=== PATIENT | male | born 1980 | race Caucasian/White ===

== ENCOUNTER → 2017-01-24 | Outpatient (REF) | payer BC | LOC: M LAB REF 13:12 | PROVIDERS: ATTEND Physician Assistant | DX: J02.9 Acute pharyngitis, unspecified (principal) ==

== ENCOUNTER 2017-11-02 13:59 | Emergency (ER) | payer BC ==
[2017-11-02] MEDS: ONDANSETRON 4 MG ORAL DISINTEGRATING TAB (S0181) PO (15:15)
[2017-11-02] MEDS: ALPRAZolam 0.25 MG TAB PO (15:19)
[2017-11-02] MEDS: NS 1,000 ML IV (15:54)
[2017-11-02] MEDS: ONDANSETRON 4MG/2ML VIAL (J2405) IV (15:54)
[2017-11-02] MEDS: LORazepam 2 MG/ML VIAL (J2060) IV (15:55)
[2017-11-02 16:08] LABS: BASO % 0.5 % (0.0-1.0); EOS # 0.1 10^3/uL (0.0-0.50); EOS % 1.6 % (0.0-3.0); HEMATOCRIT 42.4 % (42.0-52.0); HEMOGLOBIN 15.3 g/dl (14.0-18.0); IMMATURE GRANULOCYTE % 0.3 % (0-0); LYMPH # 0.4 10^3/uL (1.5-4.5); LYMPH % 9.5 % (24.0-44.0); MEAN CORPUSCULAR HEMOGLOBIN 30.6 pg (27.0-33.0); MEAN CORPUSCULAR HGB CONC 36.1 g/dl (32.0-36.5); MEAN CORPUSCULAR VOLUME 84.8 fl (80.0-96.0); MONO # 0.7 10^3/uL (0.0-0.8); MONO % 17.9 % (0.0-5.0); NEUTROPHILS # 2.7 10^3/uL (1.8-7.7); NEUTROPHILS % 70.2 % (36.0-66.0); PLATELET COUNT, AUTOMATED 224 10^3/uL (150-450); RED CELL DISTRIBUTION WIDTH 11.7 % (11.5-14.5); WHITE BLOOD COUNT 3.8 10^3/uL (4.0-10.0)
[2017-11-02 16:30] LABS: ALBUMIN 4.7 GM/DL (3.2-5.2); ALBUMIN/GLOBULIN RATIO 1.24 (1.00-1.93); ALKALINE PHOSPHATASE 76 U/L (45-117); ALT/SGPT 17 U/L (12-78); ANION GAP 9 MEQ/L (8-16); AST/SGOT 21 U/L (7-37); BILIRUBIN,TOTAL 0.9 MG/DL (0.2-1.0); BLOOD UREA NITROGEN 10 MG/DL (7-18); CALCIUM LEVEL 9.4 MG/DL (8.5-10.1); CARBON DIOXIDE LEVEL 27 MEQ/L (21-32); CHLORIDE LEVEL 104 MEQ/L (98-107); CREATININE FOR GFR 0.91 MG/DL (0.70-1.30); GLOMERULAR FILTRATION RATE > 60.0 (>60); GLUCOSE, FASTING 85 MG/DL (70-105); POTASSIUM SERUM 4.2 MEQ/L (3.5-5.1); SODIUM LEVEL 140 MEQ/L (136-145); TOTAL PROTEIN 8.5 GM/DL (6.4-8.2)
== END 2017-11-02 17:35 | disposition home or self-care (01) ==
LOC: M ED 13:59
DX: J11.1 Influenza due to unidentified influenza virus with other respiratory manifestations (principal); R11.0 Nausea; F41.9 Anxiety disorder, unspecified
CPT/HCPCS: J2405

== ENCOUNTER 2018-05-19 03:26 | Day surgery (SDC) | payer BC ==
[2018-05-19] MEDS: NS 1,000 ML IV ×2 (04:42→08:50)
[2018-05-19] MEDS: ONDANSETRON 4MG/2ML VIAL (J2405) IV ×3 (04:42→11:10)
[2018-05-19] MEDS: MORPHINE 4 MG/ML 1ML VIAL/SYRINGE (J2270) IV ×6 (04:43→21:11)
[2018-05-19 04:49] LABS: ALBUMIN 4.3 GM/DL (3.2-5.2); ALBUMIN/GLOBULIN RATIO 1.19 (1.00-1.93); ALKALINE PHOSPHATASE 83 U/L (45-117); ALT/SGPT 20 U/L (12-78); ANION GAP 8 MEQ/L (8-16); AST/SGOT 16 U/L (7-37); BILIRUBIN,DIRECT 0.1 MG/DL (0.0-0.2); BILIRUBIN,TOTAL 0.8 MG/DL (0.2-1.0); BLOOD UREA NITROGEN 15 MG/DL (7-18); CALCIUM LEVEL 9.4 MG/DL (8.5-10.1); CARBON DIOXIDE LEVEL 27 MEQ/L (21-32); CHLORIDE LEVEL 107 MEQ/L (98-107); CREATININE FOR GFR 0.91 MG/DL (0.70-1.30); GLOMERULAR FILTRATION RATE > 60.0 (>60); GLUCOSE, FASTING 111 MG/DL (70-100); LIPASE 57 U/L (73-393); POTASSIUM SERUM 4.2 MEQ/L (3.5-5.1); SODIUM LEVEL 142 MEQ/L (136-145); TOTAL PROTEIN 7.9 GM/DL (6.4-8.2)
[2018-05-19] MEDS: GASTROGRAFIN SOLUTION 30ML PO ×2 (04:49→05:20)
[2018-05-19 04:52] LABS: BASO # 0.1 10^3/uL (0.0-0.2); BASO % 0.3 % (0.0-1.0); EOS # 0.1 10^3/uL (0.0-0.50); EOS % 0.5 % (0.0-3.0); HEMATOCRIT 39.3 % (42.0-52.0); HEMOGLOBIN 14.3 g/dl (13.5-17.5); IMMATURE GRANULOCYTE % 0.5 % (0-3.0); LYMPH # 0.9 10^3/uL (1.5-4.5); MEAN CORPUSCULAR HEMOGLOBIN 31.1 pg (27.0-33.0); MEAN CORPUSCULAR HGB CONC 36.4 g/dl (32.0-36.5); MEAN CORPUSCULAR VOLUME 85.4 fl (80.0-96.0); MONO # 1.3 10^3/uL (0.0-0.8); MONO % 8.5 % (0.0-5.0); NEUTROPHILS # 12.3 10^3/uL (1.8-7.7); NEUTROPHILS % 84.2 % (36.0-66.0); PLATELET COUNT, AUTOMATED 232 10^3/uL (150-450); RED CELL DISTRIBUTION WIDTH 11.7 % (11.5-14.5); WHITE BLOOD COUNT 14.6 10^3/uL (4.0-10.0)
[2018-05-19 05:30] LABS: KETONE, URINE AUTO RFX NEGATIVE (NEGATIVE); LEUKOCYTE ESTERASE UR AUTO RFX NEGATIVE (NEGATIVE); NITRITE, URINE AUTO RFX NEGATIVE (NEGATIVE); RBC, URINE AUTO RFX 0 /HPF (0-3); SPECIFIC GRAVITY UR AUTO RFX 1.003 (1.002-1.035); SQUAM EPITHELIAL CELL UR AURFX 0 /HPF (0-6); WBC, URINE AUTO RFX 0 /HPF (0-3)
[2018-05-19] MEDS ORDERED: ISOVUE-370 76% 100ML VIAL (Q9967) As Ordered (06:07)
[2018-05-19] MEDS: PIPERACILLIN/TAZOBACTAM SOD 4.5 GM in D5W MINI-BAG PLUS 50 ML IV (08:42)
[2018-05-19] MEDS: HYDROMORPHONE HCL 0.5 MG/ 0.5 ML SYRINGE (J1170 PER 1) IV (08:50)
[2018-05-19] MEDS ORDERED: ACETAMINOPHEN TAB 650MG DOSE (2X325MG) PO (09:30)
[2018-05-19] MEDS ORDERED: MORPHINE 4 MG/ML 1ML VIAL/SYRINGE (J2270) As Ordered (10:33)
[2018-05-19] MEDS: ALPRAZolam 0.5 MG TAB PO (11:10)
[2018-05-19] MEDS: LR 1,000 ML IV ×2 (11:11→16:47)
[2018-05-19] MEDS: KETOROLAC 30 MG/ML VIAL (J1885) IV (11:38)
[2018-05-19] MEDS ORDERED: PROPOFOL 200 MG/20 ML VIAL As Ordered (14:48)
[2018-05-19] MEDS ORDERED: MIDAZOLAM INJ 2 MG/2 ML VIAL (J2250) As Ordered (14:48)
[2018-05-19] MEDS ORDERED: LIDOCAINE 2% INJ 100 MG/5 ML SDV (FOR ANES.) As Ordered (14:48)
[2018-05-19] MEDS ORDERED: fentaNYL 250 MCG/5 ML INJECTION (J3010) As Ordered (14:48)
[2018-05-19] MEDS ORDERED: ROCURONIUM BROMIDE 50 MG/5 ML VIAL As Ordered (14:49)
[2018-05-19] MEDS ORDERED: dexameTHASONE 4 MG/ML 1ML VIAL (J1100) As Ordered ×2 (14:49)
[2018-05-19] MEDS ORDERED: ONDANSETRON 4MG/2ML VIAL (J2405) As Ordered (14:49)
[2018-05-19] MEDS ORDERED: NEOSTIGMINE 10 MG/10 ML VIAL (J2710) As Ordered (14:52)
[2018-05-19] MEDS ORDERED: GLYCOPYRROLATE INJ 0.2 MG/ML 2 ML VIAL As Ordered (14:53)
[2018-05-19] MEDS: LIDOCAINE 1% SDV INJ 30 ML VIAL As Ordered (14:58)
[2018-05-19] MEDS: BUPIVACAINE HCL 0.25% 30 ML VIAL As Ordered (14:58)
[2018-05-19] MEDS ORDERED: fentaNYL 100 MCG/2 ML INJECTION (J3010) IV (15:30)
[2018-05-19] MEDS ORDERED: ONDANSETRON 4MG/2ML VIAL (J2405) IV (15:30)
[2018-05-19] MEDS ORDERED: PERCOCET 5MG/325MG TAB PO (15:30)
[2018-05-19] MEDS: PIPERACILLIN/TAZOBACTAM SOD 3.375 GM in D5W MINI-BAG PLUS 50 ML IV (17:45)
[2018-05-19] MEDS: SERTRALINE HCL 50 MG TAB PO ×2 (17:49→17:50)
[2018-05-20] MEDS: NORCO, ANEXSIA 5/325MG TABLET (HYDROcodone/ACETAMINOPHEN) PO ×3 (00:14→09:05)
[2018-05-20] MEDS: PIPERACILLIN/TAZOBACTAM SOD 3.375 GM in D5W MINI-BAG PLUS 50 ML IV ×2 (00:15→09:06)
[2018-05-20 08:34] LABS: BASO % 0.1 % (0.0-1.0); EOS % 0.1 % (0.0-3.0); HEMOGLOBIN 12.6 g/dl (13.5-17.5); IMMATURE GRANULOCYTE % 0.4 % (0-3.0); LYMPH # 0.9 10^3/uL (1.5-4.5); LYMPH % 8.5 % (24.0-44.0); MEAN CORPUSCULAR HEMOGLOBIN 30.6 pg (27.0-33.0); MEAN CORPUSCULAR VOLUME 87.4 fl (80.0-96.0); MONO # 0.9 10^3/uL (0.0-0.8); MONO % 8.4 % (0.0-5.0); NEUTROPHILS # 8.8 10^3/uL (1.8-7.7); NEUTROPHILS % 82.5 % (36.0-66.0); PLATELET COUNT, AUTOMATED 204 10^3/uL (150-450); RED BLOOD COUNT 4.12 10^6/uL (4.30-6.10); WHITE BLOOD COUNT 10.7 10^3/uL (4.0-10.0)
[2018-05-20] MEDS: SERTRALINE HCL 50 MG TAB PO (09:05)
== END 2018-05-20 11:27 | disposition home or self-care (01) ==
LOC: M SDC 05-20 11:27 → M ED 03:26 → M SDC 09:00 → M PED 10:50
DX: K35.89 Other acute appendicitis (principal); F41.9 Anxiety disorder, unspecified; Z79.899 Other long term (current) drug therapy
CPT/HCPCS: 44970

== ENCOUNTER 2018-05-29 02:50 | Emergency (ER) | payer BC ==
[2018-05-29] MEDS: GI COCKTAIL 50ML BTL(HYOSCYAMINE/MAALOX/LIDOCAINE VISCOUS)(1:3:1) PO (04:15)
== END 2018-05-29 04:36 | disposition home or self-care (01) ==
LOC: M ED 02:50
DX: S10.11XA Abrasion of throat, initial encounter (principal); X58.XXXA Exposure to other specified factors, initial encounter; Y92.89 Other specified places as the place of occurrence of the external cause
CPT/HCPCS: 70360

== ENCOUNTER → 2019-11-19 | Outpatient (CLI) | payer OTHER ==
[~2019-11-19] MED LIST: ALPR0.5T3 PO; ALPR0.5T7 PO; HYDR-3715 PO; IBUP-1022 PO; SERT-141 PO; TAMI30CA PO; TESS100C PO; ZOFR4TAB14 PO
--- NOTE | 2019-11-20 02:49 | REP ---
Clinical: Pain with prior trauma. Technique: AP, lateral, bilateral oblique and sunrise views right knee . Findings: The osseous structures and joint spaces are intact and normal. There is no evidence for acute fracture or dislocation. No joint effusion is appreciated. Surrounding soft tissues are unremarkable. No subcutaneous emphysema or radiodense foreign body. Impression: Normal examination. No acute fracture or dislocation. Electronically Signed by Robert Dueñas MD 11/20/2019 02:41 A
== END ==
LOC: M WUC 09:42
PROVIDERS: ATTEND Nurse Practitioner Family
DX: M25.561 Pain in right knee (principal)

== ENCOUNTER → 2019-12-18 | Outpatient (CLI) | payer OTHER ==
--- NOTE | 2019-12-18 17:13 | REP ---
MRI right knee without contrast: History: Contusion of the right knee. Comparison radiographs November 19, 2019. Technique: Axial, coronal, and sagittal imaging planes are utilized. T2 and vyvcoz-mjxrbpo-ziqkqlgs scans were obtained with and without fat saturation in the usual fashion. MRI findings: Cortical and medullary bone signal intensity are normal. There is no evidence of occult fracture. No visible Nelson's cyst. No pathologic joint fluid. Medial and lateral patellar retinacular structures are intact. Patellar and quadriceps tendons have an intact appearance. There is no evidence of anterior or posterior cruciate ligament disruption. Medial collateral ligament and lateral collateral ligamentous complex appear intact. No medial or lateral meniscal tear is appreciated. No articular cartilage defect is seen. Impression: No internal derangement seen. Electronically Signed by Ab Waller MD 12/18/2019 06:03 P
== END ==
LOC: M RAD 11:48
PROVIDERS: ATTEND Physician Assistant Surgical
DX: S80.01XD Contusion of right knee, subsequent encounter (principal); X58.XXXD Exposure to other specified factors, subsequent encounter

== ENCOUNTER → 2020-07-20 | Outpatient (REF) | payer OTHER | LOC: M LAB REF 12:00 | PROVIDERS: ATTEND Physician Assistant | DX: J02.9 Acute pharyngitis, unspecified (principal) ==

== ENCOUNTER → 2020-07-21 | Outpatient (CLI) | payer OTHER ==
--- NOTE | 2020-07-29 09:41 | REP ---
LUMBAR SPINE SERIES: 3-VIEWS HISTORY: Lumbago with sciatica. FINDINGS: Lumbar vertebral body heights are preserved. Alignment is normal. There is minimal disc space narrowing at L4-5. Disc spaces are otherwise preserved. There is no evidence of spondylolysis or spondylolisthesis. Sacrum and sacroiliac (SI) joints are intact. Psoas margins are symmetric. IMPRESSION: Minimal disc space narrowing at L4-5. Otherwise negative lumbar spine radiographs. MTDD
== END ==
LOC: M ADAMS 15:21
PROVIDERS: ATTEND Physician Assistant
DX: M54.41 Lumbago with sciatica, right side (principal)

== ENCOUNTER → 2020-08-21 | Outpatient (REF) | payer OTHER ==
[2020-08-21 12:45] LABS: BASO % 1.2 % (0.0-1.0); EOS # 0.2 10^3/uL (0.0-0.5); EOS % 5.1 % (0.0-3.0); HEMATOCRIT 39.3 % (42.0-52.0); HEMOGLOBIN 13.6 g/dl (13.5-17.5); LYMPH # 1.1 10^3/uL (1.5-5.0); MEAN CORPUSCULAR HEMOGLOBIN 31.1 pg (27.0-33.0); MEAN CORPUSCULAR HGB CONC 34.6 g/dl (32.0-36.5); MEAN CORPUSCULAR VOLUME 89.9 fl (80.0-96.0); MONO # 0.5 10^3/uL (0.0-0.8); MONO % 14.8 % (0.0-5.0); NEUTROPHILS # 1.5 10^3/uL (1.5-8.5); NEUTROPHILS % 44.6 % (36.0-66.0); PLATELET COUNT, AUTOMATED 254 10^3/uL (150-450); RED BLOOD COUNT 4.37 10^6/uL (4.30-6.10); WHITE BLOOD COUNT 3.3 10^3/uL (4.0-10.0)
[2020-08-21 13:09] LABS: ERYTHROCYTE SEDIMENTATION RATE 5 mm/hr (0-15)
[2020-08-21 13:13] LABS: ALBUMIN 3.8 GM/DL (3.2-5.2); ALT/SGPT 22 U/L (12-78); BILIRUBIN,TOTAL 0.9 MG/DL (0.2-1.0); BLOOD UREA NITROGEN 14 MG/DL (7-18); CALCIUM LEVEL 8.9 MG/DL (8.5-10.1); CARBON DIOXIDE LEVEL 30 MEQ/L (21-32); CHLORIDE LEVEL 109 MEQ/L (98-107); CK-MB VALUE MASS 2.5 NG/ML (<3.6); CPK CREATINE PHOSPHOKINASE 267 U/L (39-308); CREATININE FOR GFR 0.85 MG/DL (0.70-1.30); GLOMERULAR FILTRATION RATE > 60.0 (>60); GLUCOSE, FASTING 90 MG/DL (70-100); MB/CK RELATIVE INDEX 0.94 (< OR =4); POTASSIUM SERUM 4.2 MEQ/L (3.5-5.1); SODIUM LEVEL 144 MEQ/L (136-145)
[2020-08-22 16:08] LABS: Lyme Disease IgG/IgM Antibodie <0.91 ISR (0.00-0.90); Lyme Disease IgM Ab Quantitati <0.80 index (0.00-0.79)
== END ==
LOC: M LABDRWAD 12:08
PROVIDERS: ATTEND Physician Assistant
DX: M54.6 Pain in thoracic spine (principal)

== ENCOUNTER → 2020-08-22 | Outpatient (CLI) | payer OTHER ==
--- NOTE | 2020-08-22 17:04 | REP ---
INDICATION: STRAIN OF MUSCLE, FASCIA AND TENDON AT NECK LEVEL, INITIAL E. No history of trauma COMPARISON: None. FINDINGS: Seven views of the cervical spine show no acute fracture, dislocation or subluxation. The intervertebral disc spaces are symmetric and well maintained. The facet joints are well aligned bilaterally. The intervertebral foramina are patent bilaterally and the neural canal is not encroached upon. There is no destructive osseous lesion. Flexion and extension does not appear to be particularly limited radiographically. The anterior spinal soft tissues appear unremarkable. IMPRESSION: Unremarkable cervical spine series. <Electronically signed by Manny Gonzalez > 08/22/20 [id number]
--- NOTE | 2020-08-22 17:06 | REP ---
INDICATION: PAIN IN RIGHT SHOULDER. FINDINGS: The glenohumeral and acromioclavicular joints are within normal limits. There is no acute fracture or destructive osseous lesion. IMPRESSION: Negative exam. <Electronically signed by Manny Gonzalez > 08/22/20 [id number]
== END ==
LOC: M ADAMS 15:29
PROVIDERS: ATTEND Physician Assistant
DX: S16.1XXA Strain of muscle, fascia and tendon at neck level, initial encounter (principal); M25.511 Pain in right shoulder

== ENCOUNTER → 2020-12-25 | Outpatient (CLI) | payer OTHER | LOC: M RAD 08:13 | PROVIDERS: ATTEND Orthopaedic Surgery Sports Medicine | DX: Z53.9 Procedure and treatment not carried out, unspecified reason (principal); M25.511 Pain in right shoulder; M75.41 Impingement syndrome of right shoulder ==

== ENCOUNTER → 2021-01-02 | Outpatient (CLI) | payer OTHER ==
--- NOTE | 2021-01-02 18:41 | REP ---
INDICATION: IMPINGEMENT SYNDROME OF RIGHT SHOULDER. COMPARISON: Comparison radiographs are from January 16, 2014.. TECHNIQUE: Axial, oblique coronal and oblique sagittal imaging planes utilized. T1 and T2 weighted scans are included with without fat saturation. FINDINGS: Glenohumeral and acromioclavicular joints are normally aligned. Cortical and medullary bone signal intensity are normal. There is mild tendinitis tendinosis change in the distal supraspinatus tendon. No focal supraspinatus or other cuff lesion is seen. Biceps tendon is unremarkable. The infraspinatus tendon is intact. There is slight thickening and increased signal intensity in the subscapularis tendon which may reflect tendinosis here. No anterior or posterior labral tear is appreciated. No superior labral tear is seen. No juxta-articular cyst or mass is observed. No articular cartilage lesion is seen. IMPRESSION: Mild tendinitis tendinosis changes in the subscapularis and to a lesser extent supraspinatus tendons. Otherwise negative. <Electronically signed by Rayshawn Waller > 01/02/21 [id number]
== END ==
LOC: M PLARAD 01-01 08:05
PROVIDERS: ATTEND Orthopaedic Surgery Sports Medicine
DX: M75.41 Impingement syndrome of right shoulder (principal)

== ENCOUNTER → 2021-01-22 | Outpatient (CLI) | payer OTHER ==
--- NOTE | 2021-01-22 12:01 | REP ---
INDICATION: RADICULOPATHY CERVICAL REGION. COMPARISON: None. TECHNIQUE: Sagittal T1, T2, stir images of the cervical spine are obtained. Axial T1 and T2 weighted images obtained. FINDINGS: There is straightening of the cervical spine with absence of normal cervical lordosis. On the sagittal T2 weighted images, there is oxvy-sx-qwwaxrpj multilevel degenerative disc disease with loss of disc height and disc desiccation seen diffusely throughout the cervical spine. Vertebral heights are overall preserved. No ridge malalignments. Craniovertebral junction is unremarkable. On the sagittal T2 weighted images, there is cord impingement at the C6-7 disc level. No definite cord compression or abnormal cord signal. On the review of axial images, At C2-3: No significant canal or foraminal narrowing. At C3-4: Disc-osteophyte complex with shkz-vg-qzhjsqya bilateral foraminal narrowing and mild canal stenosis. At C4-5: Disc-osteophyte complex with mild bilateral foraminal narrowing and no significant canal stenosis. At C5-6: Disc-osteophyte complex with mild canal narrowing and mild bilateral foraminal narrowing. At C6-7: Disc-osteophyte complex and the appearance of small disc herniations paracentral with severe canal stenosis with cord impingement and cord compression but no definite abnormal cord signal. There is yzgt-me-ggkdhyfp left and mild right foraminal narrowing. At C7-T1 no significant canal or foraminal narrowing. IMPRESSION: 1. Cyiq-dy-ygjxivcf multilevel degenerative disc disease. Straightening of the cervical spine with absence of normal cervical lordosis. 2. At C6-7: Disc-osteophyte complex and the appearance of small disc herniations paracentral with severe canal stenosis with cord impingement and cord compression but no definite abnormal cord signal. There is rlau-si-oirmylok left and mild right foraminal narrowing. <Electronically signed by Nick Angel > 01/22/21 [id number]
== END ==
LOC: M PLARAD 10:30
PROVIDERS: ATTEND Orthopaedic Surgery Sports Medicine
DX: M54.12 Radiculopathy, cervical region (principal)

== ENCOUNTER → 2021-03-05 | Outpatient (CLI) | payer OTHER ==
--- NOTE | 2021-03-10 01:44 | ECWPNPC ---
PATIENT NAME: EAGLE CABRERA : 1980 GENDER: MALE VISIT DATE: 03/05/2021 DISCHARGE DATE: 03/05/21 1417 VISIT LOCKED DATE TIME: PHYSICIAN: VEE MOSS PHYSICIAN PAGER NO: ACTIVE RESOURCE: VEE MOSS REASON FOR APPOINTMENT 1. DDD CERVICAL HISTORY OF PRESENT ILLNESS DEPRESSION SCREENIN-YEAR-OLD MALE IN FOR INITIAL PAIN CONSULT REGARDING NECK PAIN. PATIENT ADMITS THAT HE HAS BEEN EXPERIENCING NECK AND SHOULDER PAIN SINCE LAST AUGUST STATUS POST A MOVE. HE RATES HIS PAIN CURRENTLY AT A 4-5 OUT OF 10. HE DOES ADMIT TO RESTRICTION OF MOVEMENTS. PATIENT DOES ADMIT THAT HE WAS PRESCRIBED PT HOWEVER HE WAS UNABLE TO COMPLETE HIS 6 WEEKS GIVEN HE EXPERIENCED INCREASED PAIN. PHQ-2 (2015 EDITION) LITTLE INTEREST OR PLEASURE IN DOING THINGS?NOT AT ALL FEELING DOWN, DEPRESSED, OR HOPELESS?NOT AT ALL TOTAL SCORE0 GENERAL: - - -. FALL RISK SCREENING: SCREENING NO FALLS REPORTED IN THE LAST YEAR. PAIN SCREENING: PATIENT HAS A COMPLAINT OF ACUTE OR CHRONIC PAIN :YES LOCATION OF PAIN:NECK, BOTH SHOULDERS INTENSITY OF PAIN (SCALE OF 1 TO 10):4 AVERAGE 5 WHAT DOES YOUR PAIN FEEL LIKE:ACHING, CONTINOUS, SHARP DURATION:CONTINOUS, AWAKENS FROM SLEEP PAIN IS INCREASED BY:ACTIVITIES, PROLONGED STANDING PAIN IS DECREASED BY:USE OF PAIN MEDICATIONS, SITTING NURSING NOTE: - - -. PAIN CENTER INTAKE QUESTIONS: DO YOU HAVE A HISTORY OF MRSA? :NO DO YOU TAKE A BLOOD THINNERS? :NO DO YOU HAVE ANY BLEEDING DISORDERS? :NO ANY NEW NUMBNESS OR WEAKNESS IN YOUR LEGS OR ARMS? :YES NUMBNESS, TINGLING, AND WEAKNESS IN BILATERAL HANDS AND ARMS ANY PACEMAKER,DEFIBRILLATOR, OR DORSAL COLUMN STIMULATOR? :NO DO YOU HAVE ANY RASHES OR OPEN SORES? :NO ARE YOU ALLERGIC TO IV DYE? :NO ARE YOU DIABETIC? :NO ANY NEW PROBLEMS WITH YOUR MEDICATIONS? :NO HAVE YOU RECEIVED A VACCINE IN THE PAST 30 DAYS? :NO DO YOU PLAN TO RECEIVE A VACCINE IN THE NEXT 21 DAYS? :NO DO YOU NEED ANY PRESCRIPTION? :NO DO YOU TAKE ANY IMMUNOSUPPRESSIVE MEDICATIONS? :NO IS THERE A CHANCE YOU COULD BE ? :NO ARE YOU BREAST FEEDING? :NO CURRENT MEDICATIONS TAKING IBUPROFEN 200 MG TABLET 3 TABLET WITH FOOD OR MILK NEEDED ORALLY PRN TAKING ACETAMINOPHEN EXTRA STRENGTH 500 MG TABLET 2 TABLET NEEDED ORALLY EVERY 6 HRS NEEDED FOR PAIN MEDICATION LIST REVIEWED AND RECONCILED WITH THE PATIENT PAST MEDICAL HISTORY MIGRAINES DDD IMPINGEMENT OF SPINAL CORD C3 OSTEOARTHRITIS BONE SPURS IN SPINE TENDONOSIS SPINAL STENOSIS ALLERGIES N.K.D.A. SURGICAL HISTORY ENDOSCOPY 2010 EYE SURGERY AT AGE 5 OR 6 VASECTOMY 10/01/14 APPENDECTOMY 05/19/2018 FAMILY HISTORY FATHER: ALIVE MOTHER: ALIVE, DIAGNOSED WITH DIABETES SIBLINGS: UNKNOWN, SISTER DIABETES DAUGHTER(S): ALIVE 3 BROTHER(S) , 1 SISTER(S) - HEALTHY. 2 SON(S) , 1 DAUGHTER(S) - HEALTHY. SISTER IS . MOTHER HAS DIABETES AND FATHER HAS KIDNEY DISEASE. SOCIAL HISTORY GENERAL: TOBACCO USE ARE YOU A:NEVER SMOKER LATEX QUESTIONNAIRE LATEX ALLERGY : HAVE YOU EVER DEVELOPED ANY TYPE OF REACTION AFTER HANDLING LATEX PRODUCTS SUCH RUBBER GLOVES, CONDOMS, DIAPHRAGMS, BALLOONS, SOCKS, OR UNDERWEAR?NO LATEX ALLERGY : HAVE YOU EVER DEVELOPED ANY TYPE OF REACTION DURING OR AFTER DENTAL APPOINTMENT, VAGINAL/RECTAL EXAMINATION, SURGICAL PROCEDURE, OR ANY OTHER EXPOSURE?NO LATEX RISK : HAVE YOU EVER HAD ANY DIFFICULTY BREATHING OR HIVES AFTER EATING OR HANDLING ANY FRUITS, OR VEGETABLES; SUCH KIWI, BANANAS, STONE FRUITS, OR CHESTNUTSNO LATEX RISK : DO YOU HAVE A PREVIOUS PERSONAL HISTORY OF MORE THAN NINE SURGERIES, SPINA BIFIDA, OR REPEATED CATHERIZATIONS? NO LATEX RISK : ARE YOU FREQUENTLY EXPOSED TO LATEX PRODUCTS IN YOUR OCCUPATION?NO DATE ASKED : 03/05/2021 ALCOHOL USE: OCCASIONAL BEER.. ALCOHOL SCREENING DID YOU HAVE A DRINK CONTAINING ALCOHOL IN THE PAST YEAR?YES HOW OFTEN DID YOU HAVE SIX OR MORE DRINKS ON ONE OCCASION IN THE PAST YEAR?NEVER (0 POINTS) HOW MANY DRINKS DID YOU HAVE ON A TYPICAL DAY WHEN YOU WERE DRINKING IN THE PAST YEAR?1 OR 2 (0 POINTS) HOW OFTEN DID YOU HAVE A DRINK CONTAINING ALCOHOL IN THE PAST YEAR?TWO TO FOUR TIMES A MONTH (2 POINTS) POINTS2 INTERPRETATIONNEGATIVE RECREATIONAL DRUG USE DENIES. CAFFEINE NONE. SEXUAL HX HAD SEX IN THE LAST 12 MONTHS (VAGINAL, ORAL, OR ANAL)?YES WITHWOMEN ONLY PREVENTION STRATEGIES DISCUSSED:OTHER USE PROTECTION?NO HAVE YOU EVER HAD AN STD?NO PENTECOSTAL NO YAZIDISM BELIEFS THAT WOULD IMPACT HEALTH CARE. LANGUAGE POLISH. EDUCATION LEVEL OF EDUCATION:NOT FINISHED COLLEGE LEARNING BARRIERS / SPECIAL NEEDS BARRIERS TO LEARNING?NO HEARING IMPAIRED?NO VISION IMPAIRED?YES :CORRECTIVE LENSES COGNITIVELY IMPAIRED?NO READINESS TO LEARN?YES LEARNING PREFERENCES?NO LEARNING CAPABILITIES PRESENT?YES EMOTIONAL BARRIERS?NO SPECIAL DEVICES?NO PREFITTER NEEDED?YES DOMESTIC VIOLENCE NONE. OCCUPATION: SALES. DIET: REGULAR. EXERCISE: WALKS. MARITAL STATUS: . OTHERS AT HOME: SPOUSE, CHILD. HOSPITALIZATION/MAJOR DIAGNOSTIC PROCEDURE DEHYDRATION 1993 SURGERY RELATED REVIEW OF SYSTEMS CONSTITUTIONAL: ANY RECENT FEVER NO . CHILLS NO . WEIGHT CHANGE OF UNKNOWN REASONS NO . MUSCULOSKELETAL: ANY UNUSUAL JOINT PAIN OR SWELLING NOT MENTIONED NO . SYSTEMIC LUPUS NO . ANY NEUROMUSCULAR DISORDER NOT MENTIONED NO . LYME DISEASE NO . GASTROENTEROLOGY: ANY NEW CHANGE IN BOWEL CONTROL? NO . HISTORY OF LIVER DISORDER NOT MENTIONED NO . HISTORY OF UNUSUAL ABDOMINAL PAIN OR CRAMPING NOT MENTIONED NO . NO CONSTIPATION. GENITOURINARY: ANY NEW CHANGE IN BLADDER CONTROL? NO . ANY RENAL/KIDNEY CONDITON NOT MENTIONED NO . NEUROLOGY: HISTORY OF TBI NOT MENTIONED NO . OTHER NEW NUMBNESS OR PAIN PATTERNS NOT MENTIONED NO . NEW ONSET DIZZINESS OR NEUROLOGICAL CHANGES NOT MENTIONED NO . HISTORY OF SEVERE HEADACHES NOT MENTIONED NO . HISTORY OF STROKE OR NEUROLOGICAL DISORDER NOT MENTIONED NO . CARDIOLOGY: HEART SURGERY NO . CONGESTIVE HEART FAILURE/FLUID OVERLOAD NOT MENTIONED NO . HISTORY OF CHEST PAIN,IRREGULAR HEART BEAT NOT MENTIONED NO . RESPIRATORY: SHORTNESS OF BREATH ON EXERTION, WHEEZES, UNUSUAL COUGH NOT MENTIONED NO . ENDOCRINOLOGY: ADRENAL GLAND OR THYROID DISORDERS NOT MENTIONED NO . UNUSUAL URINATION, DIZZINESS OR LETHARGY NOT MENTIONED NO . VITAL SIGNS WT 166.4 LBS, HT 5'11", BMI 23.21 INDEX, BP 117/80 MM HG, HR 101 /MIN, RR 18 /MIN, TEMP 99.2 F, OXYGEN SAT % 97%, SAFE IN ENV? (Y/N) YES, NA INITIALS , REVIEWED BY: EVELYN NICHOLSON MA. EXAMINATION GENERAL EXAMINATION: GENERALNO ACUTE DISTRESS, WELL NOURISHED AND HYDRATED. PSYCHAPPROPRIATE MOOD AND AFFECT . NECK:POINT TENDER BILATERAL NECK AND SHOULDERS, SURROUNDING SKIN SHOWS NO ERYTHEMA, ECCHYMOSIS, INCREASED WARMTH, AND/OR SKIN ERUPTIONS NOTED. BANDS OF RESTRICTIVE TISSUE NOTED OVER TRIGGER POINTS. POSITIVE SPURLING SIGN AND PATIENT DOES ENDORSE INCREASED NECK PAIN WHEN ASKED TO LIFT ARMS AGAINST RESISTANCE.. LUNGS:CLEAR TO AUSCULTATION BILATERALLY, NO WHEEZES, RHONCHI, RALES. HEART:NO MURMURS, REGULAR RATE AND RHYTHM. ASSESSMENTS MYALGIA, OTHER SITE - M79.18 TREATMENT MYALGIA, OTHER SITE START GABAPENTIN CAPSULE, 100 MG, 1 CAPSULE, ORALLY, THREE TIMES DAILY X 5 DAYS, 5 DAYS, 15 START GABAPENTIN CAPSULE, 300 MG, 1 CAPSULE, ORALLY, THREE TIMES DAILY START DAY 6, 30 DAY(S), 90, REFILLS 1 NOTES: 40-YEAR-OLD MALE IN FOR INITIAL PAIN CONSULT REGARDING NECK AND SHOULDER PAIN. GIVEN PRESENTING SYMPTOMS AND RESULTS OF PHYSICAL EXAMINATION RECOMMENDED BILATERAL NECK AND BILATERAL SHOULDER TRIGGER POINT INJECTIONS WITH POSTPROCEDURAL FOLLOW-UP. FURTHER RECOMMENDED STARTING GABAPENTIN. PATIENT HAS EXPRESSED UNDERSTANDING OF AND WAS IN AGREEMENT WITH TREATMENT PLAN. GIVEN TIME TO ASK QUESTIONS AND EXPRESS CONCERNS. OTHERS NOTES: GABAPENTIN MATERIAL WAS PRINTED. PREPROCEDURE AND PROCEDURE INFORMATION PRINTED AND PROVIDED TO PATIENT. PATIENT VERBALIZED AN UNDERSTANDING. RUSH NICHOLSON MA. PROCEDURE CODES [id number] ESTABILISHED PATIENT [facility] CHARGE DISPOSITION & COMMUNICATION FOLLOW UP POSTPROCEDURE (REASON: BILATERAL NECK AND BILATERAL SHOULDER TRIGGER POINT INJECTIONS) ELECTRONICALLY SIGNED BY CHRISTY MOON ON 03/09/2021 AT 10:36 AM EDT DISCLAIMER : THIS IS A VISIT SUMMARY EXTRACTED FROM THE [employer] CHART. IT IS NOT A COPY OF THE [employer] PROGRESS NOTE. NABILA
== END ==
LOC: M PAIN 13:00
PROVIDERS: ATTEND Family Medicine
DX: M79.18 Myalgia, other site (principal); G43.909 Migraine, unspecified, not intractable, without status migrainosus; Z79.899 Other long term (current) drug therapy

== ENCOUNTER → 2021-03-14 | Outpatient (CLI) | payer OTHER | LOC: M LABSMTC 09:33 | PROVIDERS: ATTEND Anesthesiology | DX: Z20.828 Contact with and (suspected) exposure to other viral communicable diseases (principal); Z11.59 Encounter for screening for other viral diseases ==

== ENCOUNTER → 2021-03-19 | Outpatient (CLI) | payer OTHER ==
[~2021-03-19] MED LIST changes: +BUPIVACAINE HCL 0.25% 10ML VIAL As Ordered ONE; +BUPIVACAINE HCL 0.25% 30ML VIAL As Ordered ONE; +NORCO, ANEXSIA 5/325MG TABLET (HYDROcodone/ACETAMINOPHEN) As Ordered ONE; +TRIAMCINOLONE ACETONIDE SUSP 40 MG/ML VIAL (J3301) As Ordered ONE; +diazePAM 5MG TABLET As Ordered ONE
--- NOTE | 2021-03-20 00:04 | ECWPNPC ---
PATIENT NAME: EAGLE CABRERA : 1980 GENDER: MALE VISIT DATE: 03/19/2021 DISCHARGE DATE: 03/19/21 1123 VISIT LOCKED DATE TIME: PHYSICIAN: ALEXANDER JOSHI MD PHYSICIAN PAGER NO: ACTIVE RESOURCE: ALEXANDER JOSHI MD REASON FOR APPOINTMENT 1. TRIGGER POINT INJECTIONS BILATERAL NECK AND BILATERAL SHOULDER HISTORY OF PRESENT ILLNESS GENERAL: -. FALL RISK SCREENING: SCREENING : NO FALLS REPORTED IN THE LAST YEAR. PAIN SCREENING: PATIENT HAS A COMPLAINT OF ACUTE OR CHRONIC PAIN :YES LOCATION OF PAIN:NECK, LEFT SHOULDER, RIGHT SHOULDER INTENSITY OF PAIN (SCALE OF 1 TO 10):3 3 WITH PAIN MEDS. 7-8 WITHOUT MEDS. WHAT DOES YOUR PAIN FEEL LIKE:ACHING, CONTINOUS, SHARP, STABBING, TENDER, THROBBING, SORE, SHOOTING DURATION:CONTINOUS PAIN IS INCREASED BY:ACTIVITIES PAIN IS DECREASED BY:USE OF PAIN MEDICATIONS NURSING NOTE: -. PAIN CENTER INTAKE QUESTIONS: DO YOU HAVE A HISTORY OF MRSA? :NO DO YOU TAKE A BLOOD THINNERS? :NO DO YOU HAVE ANY BLEEDING DISORDERS? :NO ANY NEW NUMBNESS OR WEAKNESS IN YOUR LEGS OR ARMS? :NO ANY PACEMAKER,DEFIBRILLATOR, OR DORSAL COLUMN STIMULATOR? :NO DO YOU HAVE ANY RASHES OR OPEN SORES? :NO ARE YOU ALLERGIC TO IV DYE? :NO ARE YOU DIABETIC? :NO ANY NEW PROBLEMS WITH YOUR MEDICATIONS? :NO HAVE YOU RECEIVED A VACCINE IN THE PAST 30 DAYS? :NO DO YOU PLAN TO RECEIVE A VACCINE IN THE NEXT 21 DAYS? :NO DO YOU TAKE ANY IMMUNOSUPPRESSIVE MEDICATIONS? :NO ANY HISTORY OF SEIZURES? :NO ANY HISTORY OF CARDIAC ISSUES OR EVENTS? :NO DO YOU HAVE ANY KIDNEY OR LIVER DISEASE? :NO DO YOU HAVE SLEEP APNEA? :NO ANY RECENT HEAD INJURY? :NO DO YOU HAVE ANY NEW INFECTIONS? :NO IS THERE A CHANCE YOU COULD BE ? :NO ARE YOU BREAST FEEDING? :NO WHEN DID YOU LAST EAT? : 03/18/21 1900 WHEN DID YOU LAST DRINK? : 03/18/21 0500 WHAT DID YOU LAST DRINK? : NO NAME OF PERSON DRIVING YOU HOME? : PABLO (GF) DO YOU HAVE ANY OTHER QUESTIONS OR CONCERNS? : NO CURRENT MEDICATIONS TAKING IBUPROFEN 200 MG TABLET 3 TABLET WITH FOOD OR MILK NEEDED ORALLY PRN, NOTES: 6/2 TAKING ACETAMINOPHEN EXTRA STRENGTH 500 MG TABLET 2 TABLET NEEDED ORALLY EVERY 6 HRS NEEDED FOR PAIN, NOTES: 6/2 TAKING GABAPENTIN 300 MG CAPSULE 1 CAPSULE ORALLY THREE TIMES DAILY START DAY 6, NOTES: 6/2 TAKING METHOCARBAMOL 750 MG TABLET 1 TABLET ORALLY EVERY 4 HRS PRN, NOTES: 62 NOT-TAKING GABAPENTIN 100 MG CAPSULE 1 CAPSULE ORALLY THREE TIMES DAILY X 5 DAYS MEDICATION LIST REVIEWED AND RECONCILED WITH THE PATIENT PAST MEDICAL HISTORY MIGRAINES DDD IMPINGEMENT OF SPINAL CORD C3 OSTEOARTHRITIS BONE SPURS IN SPINE TENDONOSIS SPINAL STENOSIS ALLERGIES N.K.D.A. SURGICAL HISTORY ENDOSCOPY 2010 EYE SURGERY AT AGE 5 OR 6 VASECTOMY 10/01/14 APPENDECTOMY 05/19/2018 FAMILY HISTORY FATHER: ALIVE MOTHER: ALIVE, DIAGNOSED WITH DIABETES SIBLINGS: UNKNOWN, SISTER DIABETES DAUGHTER(S): ALIVE 3 BROTHER(S) , 1 SISTER(S) - HEALTHY. 2 SON(S) , 1 DAUGHTER(S) - HEALTHY. SISTER IS . MOTHER HAS DIABETES AND FATHER HAS KIDNEY DISEASE. SOCIAL HISTORY GENERAL: TOBACCO USE ARE YOU A:NEVER SMOKER LATEX QUESTIONNAIRE LATEX ALLERGY : HAVE YOU EVER DEVELOPED ANY TYPE OF REACTION AFTER HANDLING LATEX PRODUCTS SUCH RUBBER GLOVES, CONDOMS, DIAPHRAGMS, BALLOONS, SOCKS, OR UNDERWEAR?NO LATEX ALLERGY : HAVE YOU EVER DEVELOPED ANY TYPE OF REACTION DURING OR AFTER DENTAL APPOINTMENT, VAGINAL/RECTAL EXAMINATION, SURGICAL PROCEDURE, OR ANY OTHER EXPOSURE?NO LATEX RISK : HAVE YOU EVER HAD ANY DIFFICULTY BREATHING OR HIVES AFTER EATING OR HANDLING ANY FRUITS, OR VEGETABLES; SUCH KIWI, BANANAS, STONE FRUITS, OR CHESTNUTSNO LATEX RISK : DO YOU HAVE A PREVIOUS PERSONAL HISTORY OF MORE THAN NINE SURGERIES, SPINA BIFIDA, OR REPEATED CATHERIZATIONS? NO LATEX RISK : ARE YOU FREQUENTLY EXPOSED TO LATEX PRODUCTS IN YOUR OCCUPATION?NO DATE ASKED : 03/18/2021 ALCOHOL USE: OCCASIONAL BEER.. ALCOHOL SCREENING POINTS: 2, INTERPRETATION: NEGATIVE. RECREATIONAL DRUG USE DENIES. CAFFEINE NONE. SEXUAL HX HAD SEX IN THE LAST 12 MONTHS (VAGINAL, ORAL, OR ANAL)?: YES, WITH: WOMEN ONLY, USE PROTECTION?: NO, PREVENTION STRATEGIES DISCUSSED:: OTHER, HAVE YOU EVER HAD AN STD?: NO. TEMPLE NO JEW BELIEFS THAT WOULD IMPACT HEALTH CARE. LANGUAGE FAROESE. EDUCATION LEVEL OF EDUCATION:NOT FINISHED COLLEGE LEARNING BARRIERS / SPECIAL NEEDS BARRIERS TO LEARNING?NO HEARING IMPAIRED?NO VISION IMPAIRED?YES :CORRECTIVE LENSES COGNITIVELY IMPAIRED?NO READINESS TO LEARN?YES LEARNING PREFERENCES?NO LEARNING CAPABILITIES PRESENT?YES EMOTIONAL BARRIERS?NO SPECIAL DEVICES?NO TELETYPESETTER MONITOR NEEDED?YES DOMESTIC VIOLENCE NONE. OCCUPATION: SALES. DIET: REGULAR. EXERCISE: WALKS. MARITAL STATUS: . OTHERS AT HOME: SPOUSE, CHILD. HOSPITALIZATION/MAJOR DIAGNOSTIC PROCEDURE DEHYDRATION 1993 SURGERY RELATED VITAL SIGNS WT 165.0 LBS, HT 5'11", BMI 23.01 INDEX, BP 109/72 MM HG, HR 70 /MIN, RR 18 /MIN, TEMP 98.0 F, OXYGEN SAT % 98%, SAFE IN ENV? (Y/N) YES, NA INITIALS AW 0848, REVIEWED BY: Heena COOK RN BSN. EXAMINATION GENERAL: A HISTORY AND PHYSICAL EXAM ON THE PATIENT WAS DONE ON 03/05/2021(DATE OF ORIGINAL ASSESSMENT) IN PREPARATION OF SURGERY/PROCEDURE. I HAVE NOW REASSESSED THIS PATIENT'S HEALTH STATUS AND PERFORMED AN UPDATED EXAM TODAY. ALL CHANGES IN THE PATIENT'S HISTORY, PHYSICAL EXAM, PRE-EXISTING CONDITONS, AND INDICATIONS/CONTRAINDICATIONS TO THE PLANNED PROCEDURE AND ANESTHESIA ARE DOCUMENTED AND EVALUATED BELOW. I ATTEST TO THE ADEQUACY AND APPROPRIATENESS OF MY ASSESSMENT, AND CONFIRM THE NECESSITY FOR THE PLANNED PROCEDURE. THE PATIENT IS ALERT, ORIENTED TIMES THREE AND COOPERATIVE. LUNGS ARE CLEAR TO AUSCULTATION. HEART SHOWS REGULAR RHYTHM, NO MURMURS AND NO GALLOPS. ASSESSMENTS MYALGIA - M79.10 (PRIMARY) TREATMENT MYALGIA MEDICATION: VALIUM TAB 5MG ORALLY (DIAZEPAM)NATHAN LINARES 03/19/2021 10:03:33 AM > VERIFIED BRANDON COOK 03/19/2021 11:06:34 AM > ADMINISTERED AT 1048. COMPLETION OF PROCEDURAL VISIT WHEN MEETS CRITERIA MED: PAIN NORCO TABLET 5MG/325MG ORALLY HYDROCODONE/ACETAMINOPHENNATHAN LINARES 03/19/2021 10:03:46 AM > VERIFIED BRANDON COOK 03/19/2021 11:06:50 AM > ADMINISTERED AT 1048. REFERRAL TO:[facility] REASON:NUMBNESS AND WEAKNESS DOWN UPPER EXTREMITIES OTHERS NOTES: PAT COMPLETED 03/18/21 M DALE DIEGO. PROCEDURES PAIN NURSING RECORD PROCEDURE IN ROOM 0836 UPON ARRIVAL TO CLINIC, PHYSICIAN IN ROOM 1100, START 1107, FINISH 1111, PHYSICIAN OUT OF ROOM 1112, OUT OF ROOM 1125, ECG N/A, PATIENT SHIELDED N/A, SAFETY STRAP N/A, PREP ALCOHOL DR. JOSHI, DRESSING TEGADERM Heena COOK RN LOC: BRANDON COOK 03/19/2021 9:16:21 AM > 1. ALERT, ORIENTED LOC REMAINED AT BASELINE THROUGHOUT THE PROCEDURE RESP: BRANDON COOK 03/19/2021 9:16:21 AM > 1. REGULAR, NO DYSPNEA COLOR: BRANDON COOK 03/19/2021 9:16:21 AM > 1. PINK SKIN: BRANDON COOK 03/19/2021 9:16:21 AM > 1. WARM, DRY POSITION: BRANDON COOK 03/19/2021 9:16:21 AM > 5. SITTING VITALS: BRANDON COOK 03/19/2021 11:20:52 AM > POST PROCEDURE 119/83, 96, 95% RA, 18. COMPLETION OF PROCEDURE APPOINTMENT: POST PAIN 0/10 EVEN WITH MOVEMENT, DRESSING SITE DRY AND INTACT, IV N/A, GAIT STEADY, TEACHING COMPLETED, PATIENT ACKNOWLEDGES UNDERSTANDING YES PATIENT PROVIDED POST PROCEDURE PAIN DIARY, COVID SYMPTOM MONITORING INSTRUCTIONS AND POST PROCEDURE INSTRUCTIONS, HANDOUTS REVIEWED WITH PATIENT; PATIENT VERBALIZES UNDERSTANDING, NO QUESTIONS OR CONCERNS AT THIS TIME., PROCEDURE APPOINTMENT COMPLETED AT 1125 BY: Heena COOK RN. PN TRIGGER POINT INJECTION WITH STEROIDS PRE PROCEDURE DIAGNOSIS 1. MYALGIA 2. PAIN AT BILATERAL SHOULDER AREA AND BILATERAL THORACIC AREA POST PROCEDURE DIAGNOSIS 1. MYALGIA 2. PAIN AT BILATERAL SHOULDER AREA AND BILATERAL THORACIC AREA PROCEDURE TRIGGER POINT INJECTION AT BILATERAL SHOULDER AREA AND BILATERAL THORACIC AREA SURGEON DR. ALEXANDER JOSHI FILM SORTER NONE ANESTHESIA LOCAL PRE PROCEDURE NOTE THE PATIENT HAS A HISTORY OF CHRONIC PAIN AT THE RIGHT AND LEFT SHOULDER AREA AND RIGHT AND LEFT THORACIC AREA. I EVALUATED THE PATIENT AND REVIEWED THE CHART. THERE IS EVIDENCE OF BANDS OF TISSUE WITH RESTRICTION OF MOVEMENT AND PRESENCE OF TRIGGER POINT AT THE RIGHT AND LEFT SHOULDER AREA AND RIGHT AND LEFT THORACIC AREA. I WENT OVER THE RISKS, ALTERNATIVES, AND BENEFITS ASSOCIATED WITH THIS PROCEDURE. THE PATIENT WOULD LIKE TO PROCEED AND GIVE CONSENT TO PERFORMED THE PROCEDURE. THE PATIENT DENIES UNEXPLAINABLE WEIGHT LOSS, FEVER, CHILLS, OR NEW CHANGES IN URINARY OR BOWEL CONTROL. THE PATIENT IS COVID-19 NEGATIVE DESCRIPTION OF PROCEDURE THE PATIENT WAS BROUGHT TO THE PROCEDURE ROOM AND PLACED IN THE SITTING POSITION. THE AREA WAS CLEANED WITH ALCOHOL. THE PROCEDURE WAS DONE USING ASEPTIC STERILE TECHNIQUE. A TIMEOUT WAS PERFORMED WHERE THE CONSENTED SITE WAS VERIFIED WITH EVERYONE IN THE ROOM. USING A 25-GAUGE NEEDLE, TRIGGER POINTS WERE INJECTED AT THE RIGHT AND LEFT SHOULDER AREA AND RIGHT AND LEFT THORACIC AREA WITH A TOTAL OF 40 ML OF BUPIVACAINE 0.25% AND KENALOG 40 MG. THE MEDICATIONS WERE VERIFIED WITH THE NURSE. THERE WAS NO EVIDENCE OF BLOOD OR PARESTHESIA DURING THE PROCEDURE. THE PATIENT WAS SENT TO THE RECOVERY ROOM. THE PATIENT WAS MOVING THE EXTREMITIES AND DOING WELL. THERE WERE NO COMPLICATIONS DURING THE PROCEDURE. ESTIMATED BLOOD LOSS WAS LESS THAN 5 ML POST PROCEDURE NOTE MR. CABRERA DID A CERVICAL MRI ON 01/22/2021 THAT IS SHOWING SOME SEVERE STENOSIS AT C6-C7. HE IS ALSO HAVING NUMBNESS AND WEAKNESS DOWN BOTH UPPER EXTREMITIES. SO I SUGGEST REFERRING HIM FOR A SPINE SURGICAL CONSULT. HE IS ALSO GOING TO HAVE A FOLLOW UP WITH DR. MELLO. THE PATIENT MAY BE A CANDIDATE FOR A CERVICAL EPIDURAL DEPENDING ON THE RESULTS OF TODAY'S PROCEDURE. THE PROCEDURE DONE WAS DISCUSSED WITH THE PATIENT. THE PATIENT WILL BE SEEN IN A FOLLOW UP IN THE NEXT FEW WEEKS. I AM LOOKING FOR LONG LASTING PAIN RELIEF FOR THE PATIENT WITH THIS INTERVENTION. INSTRUCTIONS WERE GIVEN, QUESTIONS WERE ANSWERED, AND THE PATIENT EXPRESSED UNDERSTANDING AND AGREES WITH THE PLAN. I, DAPHNIE VYAS, DOCUMENTED THE ABOVE INFORMATION ACTING A SCRIBE FOR DR. JOSHI. I HAVE REVIEWED THE ABOVE DOCUMENT, WRITTEN BY DAPHNIE VYAS, [employer] BPM ARCHITECT, AND I VERIFY THAT IT IS ACCURATE PROCEDURE CODES 63919 INJECT TRIGGER POINTS 3/> DISPOSITION & COMMUNICATION FOLLOW UP FOLLOW UP WITH BOAT CLEANING SUPERVISOR (REASON: POST TRIGGER POINT INEJCTION BILATERAL SHOULDER AND BILATERAL THORACIC) ELECTRONICALLY SIGNED BY ALEXANDER JOSHI MD, MD ON 03/19/2021 AT 02:46 PM EDT DISCLAIMER : THIS IS A VISIT SUMMARY EXTRACTED FROM THE [employer] CHART. IT IS NOT A COPY OF THE [employer] PROGRESS NOTE. NABILA
== END ==
LOC: M PAIN 08:30
PROVIDERS: ATTEND Anesthesiology
DX: M79.10 Myalgia, unspecified site (principal); G43.909 Migraine, unspecified, not intractable, without status migrainosus; Z79.899 Other long term (current) drug therapy
CPT/HCPCS: 20553; J3301

== ENCOUNTER → 2021-04-09 | Outpatient (CLI) | payer OTHER ==
[~2021-04-09] MED LIST changes: -BUPIVACAINE HCL 0.25% 10ML VIAL As Ordered ONE; -BUPIVACAINE HCL 0.25% 30ML VIAL As Ordered ONE; -NORCO, ANEXSIA 5/325MG TABLET (HYDROcodone/ACETAMINOPHEN) As Ordered ONE; -TRIAMCINOLONE ACETONIDE SUSP 40 MG/ML VIAL (J3301) As Ordered ONE; -diazePAM 5MG TABLET As Ordered ONE
--- NOTE | 2021-04-11 04:01 | ECWPNPC ---
PATIENT NAME: EAGLE CABRERA : 1980 GENDER: MALE VISIT DATE: 04/09/2021 DISCHARGE DATE: 04/09/21 1212 VISIT LOCKED DATE TIME: PHYSICIAN: VEE MOSS PHYSICIAN PAGER NO: ACTIVE RESOURCE: VEE MOSS REASON FOR APPOINTMENT 1. POST BILATERAL NECK AND BILATERAL SHOULDER TRIGGER POINT INJECTIONS HISTORY OF PRESENT ILLNESS GENERAL: HPI 32-YEAR-OLD MALE IN FOR POST TRIGGER POINT JUNCTION FOLLOW-UP. PATIENT FEELS PROCEDURE WAS UNSUCCESSFUL. HE RATES HIS PAIN CURRENTLY A 4-10 DESCRIBES IT ACHING AND SHOOTING. PATIENT DOES ADMIT TO PAIN IN HIS NECK AREA THAT RADIATES DOWN HIS RIGHT ARM.. -. FALL RISK SCREENING: SCREENING : NO FALLS REPORTED IN THE LAST YEAR. PAIN SCREENING: PATIENT HAS A COMPLAINT OF ACUTE OR CHRONIC PAIN :YES LOCATION OF PAIN:NECK, BOTH SHOULDERS INTENSITY OF PAIN (SCALE OF 1 TO 10):4 WHAT DOES YOUR PAIN FEEL LIKE:ACHING, SHOOTING DURATION:CONTINOUS, CONSTANT, AWAKENS FROM SLEEP PAIN IS INCREASED BY:ACTIVITIES, PROLONGED STANDING PAIN IS DECREASED BY:USE OF PAIN MEDICATIONS, SITTING NURSING NOTE: -. PAIN CENTER INTAKE QUESTIONS: DO YOU HAVE A HISTORY OF MRSA? :NO DO YOU TAKE A BLOOD THINNERS? :NO DO YOU HAVE ANY BLEEDING DISORDERS? :NO ANY NEW NUMBNESS OR WEAKNESS IN YOUR LEGS OR ARMS? :YES NUMBNESS, TINGLING, AND WEAKNESS IN BILATERAL HANDS AND ARMS ANY PACEMAKER,DEFIBRILLATOR, OR DORSAL COLUMN STIMULATOR? :NO DO YOU HAVE ANY RASHES OR OPEN SORES? :NO ARE YOU ALLERGIC TO IV DYE? :NO ARE YOU DIABETIC? :NO ANY NEW PROBLEMS WITH YOUR MEDICATIONS? :NO HAVE YOU RECEIVED A VACCINE IN THE PAST 30 DAYS? :NO DO YOU PLAN TO RECEIVE A VACCINE IN THE NEXT 21 DAYS? :NO DO YOU NEED ANY PRESCRIPTION? :NO DO YOU TAKE ANY IMMUNOSUPPRESSIVE MEDICATIONS? :NO IS THERE A CHANCE YOU COULD BE ? :NO ARE YOU BREAST FEEDING? :NO CURRENT MEDICATIONS TAKING IBUPROFEN 200 MG TABLET 3 TABLET WITH FOOD OR MILK NEEDED ORALLY PRN, NOTES: 6/2 TAKING ACETAMINOPHEN EXTRA STRENGTH 500 MG TABLET 2 TABLET NEEDED ORALLY EVERY 6 HRS NEEDED FOR PAIN, NOTES: 6/2 TAKING GABAPENTIN 300 MG CAPSULE 1 CAPSULE ORALLY THREE TIMES DAILY START DAY 6, NOTES: 6/2 TAKING METHOCARBAMOL 750 MG TABLET 1 TABLET ORALLY EVERY 4 HRS PRN, NOTES: 03/18 UNKNOWN GABAPENTIN 100 MG CAPSULE 1 CAPSULE ORALLY THREE TIMES DAILY X 5 DAYS MEDICATION LIST REVIEWED AND RECONCILED WITH THE PATIENT PAST MEDICAL HISTORY MIGRAINES DDD IMPINGEMENT OF SPINAL CORD C3 OSTEOARTHRITIS BONE SPURS IN SPINE TENDONOSIS SPINAL STENOSIS ALLERGIES N.K.DCodyA. SURGICAL HISTORY ENDOSCOPY 2009 EYE SURGERY AT AGE 5 OR 6 VASECTOMY 10/01/14 APPENDECTOMY 05/19/2018 SOCIAL HISTORY GENERAL: TOBACCO USE ARE YOU A:NEVER SMOKER LATEX QUESTIONNAIRE LATEX ALLERGY : HAVE YOU EVER DEVELOPED ANY TYPE OF REACTION AFTER HANDLING LATEX PRODUCTS SUCH RUBBER GLOVES, CONDOMS, DIAPHRAGMS, BALLOONS, SOCKS, OR UNDERWEAR?NO LATEX ALLERGY : HAVE YOU EVER DEVELOPED ANY TYPE OF REACTION DURING OR AFTER DENTAL APPOINTMENT, VAGINAL/RECTAL EXAMINATION, SURGICAL PROCEDURE, OR ANY OTHER EXPOSURE?NO LATEX RISK : HAVE YOU EVER HAD ANY DIFFICULTY BREATHING OR HIVES AFTER EATING OR HANDLING ANY FRUITS, OR VEGETABLES; SUCH KIWI, BANANAS, STONE FRUITS, OR CHESTNUTSNO LATEX RISK : DO YOU HAVE A PREVIOUS PERSONAL HISTORY OF MORE THAN NINE SURGERIES, SPINA BIFIDA, OR REPEATED CATHERIZATIONS? NO LATEX RISK : ARE YOU FREQUENTLY EXPOSED TO LATEX PRODUCTS IN YOUR OCCUPATION?NO DATE ASKED : 04/09/2021 ALCOHOL USE: OCCASIONAL BEER.. ALCOHOL SCREENING POINTS: 2, INTERPRETATION: NEGATIVE. RECREATIONAL DRUG USE DENIES. CAFFEINE NONE. SEXUAL HX HAD SEX IN THE LAST 12 MONTHS (VAGINAL, ORAL, OR ANAL)?: YES, WITH: WOMEN ONLY, USE PROTECTION?: NO, PREVENTION STRATEGIES DISCUSSED:: OTHER, HAVE YOU EVER HAD AN STD?: NO. CONFUCIANISM NO CONFUCIANISM BELIEFS THAT WOULD IMPACT HEALTH CARE. LANGUAGE HAITIAN. EDUCATION LEVEL OF EDUCATION:NOT FINISHED COLLEGE LEARNING BARRIERS / SPECIAL NEEDS CHANGE FROM LAST VISIT?NO BARRIERS TO LEARNING?NO HEARING IMPAIRED?NO VISION IMPAIRED?YES :CORRECTIVE LENSES COGNITIVELY IMPAIRED?NO READINESS TO LEARN?YES LEARNING PREFERENCES?NO LEARNING CAPABILITIES PRESENT?YES EMOTIONAL BARRIERS?NO SPECIAL DEVICES?NO PRESS SETTER NEEDED?NO DOMESTIC VIOLENCE NONE. OCCUPATION: SALES. DIET: REGULAR. EXERCISE: WALKS. MARITAL STATUS: . OTHERS AT HOME: SPOUSE, CHILD. HOSPITALIZATION/MAJOR DIAGNOSTIC PROCEDURE DEHYDRATION 1994 SURGERY RELATED REVIEW OF SYSTEMS CONSTITUTIONAL: ANY RECENT FEVER NO . CHILLS NO . WEIGHT CHANGE OF UNKNOWN REASONS NO . GASTROENTEROLOGY: NEW UNEXPLAINABLE CHANGES IN BOWEL CONTROL NO . CONSTIPATION NO . GENITOURINARY: ANY NEW CHANGE IN BLADDER CONTROL? NO . NEUROLOGY: NEW ONSET DIZZINESS OR NEUROLOGICAL CHANGES NOT MENTIONED NO . NEW NUMBNESS OR PAIN PATTERNS NOT MENTIONED AND PERTINENT TO TODAY'S VISIT NO . CARDIOLOGY: NEW CHEST PRESSURE NO . PATIENT DENIES NO . RESPIRATORY: UNEXPLAINABLE COUGH NO . NEW SHORTNESS OF BREATH NO . VITAL SIGNS WT 162.2 LBS, HT 5'11", BMI 22.62 INDEX, BP 118/71 MM HG, HR 80 /MIN, RR 18 /MIN, TEMP 98.1 F, OXYGEN SAT % 97%, SAFE IN ENV? (Y/N) YES, NA INITIALS UT 11:37, REVIEWED BY: EVELYN NICHOLSON MA. EXAMINATION GENERAL EXAMINATION: GENERALNO ACUTE DISTRESS, WELL NOURISHED AND HYDRATED. PSYCHAPPROPRIATE MOOD AND AFFECT . NECK:POINT TENDER ALONG CERVICAL SPINE, SURROUNDING SKIN SHOWS NO ERYTHEMA, ECCHYMOSIS, INCREASED WARMTH, AND OR SKIN RASHES NOTED. POSITIVE SPURLING SIGN. LUNGS:CLEAR TO AUSCULTATION BILATERALLY, NO WHEEZES, RHONCHI, RALES. HEART:NO MURMURS, REGULAR RATE AND RHYTHM. ASSESSMENTS OTHER CHRONIC PAIN - G89.29 (PRIMARY) CERVICAL DISC DISORDER WITH RADICULOPATHY - M50.10 TREATMENT OTHER CHRONIC PAIN PAIN PROCEDURE LOGDATE OF [id number]/03/2021PROCEDURE:TRIGGER POINT INJECTIONS BILATERAL NECK AND BILATERAL SHOULDERSAMOUNT OF PRE SEDATEVALIUM 5 MG PO, NORCO 5/325 MG PORESULT:UNSUCCESSFUL MEDICATION: NORCO TABLET 5MG/325MG ORALLY (HYDROCODONE/ACETAMINOPHEN) (ORDERED FOR 04/17/2021) MEDICATION: VALIUM TAB 5MG ORALLY (DIAZEPAM) (ORDERED FOR 04/17/2021) SALINE LOCK (ORDERED FOR 04/17/2021) CERVICAL DISC DISORDER WITH RADICULOPATHY NOTES: 32-YEAR-OLD MALE FOR POST TRIGGER POINT JUNCTION FOLLOW-UP. GIVEN PRESENTING SYMPTOMS AND RESULTS OF PHYSICAL EXAMINATION RECOMMEND CERVICAL EPIDURAL STEROID INJECTION WITH POSTPROCEDURAL FOLLOW-UP. PATIENT HAS EXPRESSED UNDERSTANDING OF WAS IN AGREEMENT WITH TREATMENT PLAN. GIVEN TIME ASKED QUESTIONS AND EXPRESS CONCERNS. PROCEDURE CODES FA211 ESTABILISHED PATIENT [facility] FACILITY CHARGE DISPOSITION & COMMUNICATION FOLLOW UP POST PROCEDURE (REASON: CERVICAL EPIDURAL STEROID INJECTION ) ELECTRONICALLY SIGNED BY CHRISTY MOON ON 04/10/2021 AT 12:54 PM EDT DISCLAIMER : THIS IS A VISIT SUMMARY EXTRACTED FROM THE [employer] CHART. IT IS NOT A COPY OF THE [employer] PROGRESS NOTE. NABLIA
== END ==
LOC: M PAIN 11:30
PROVIDERS: ATTEND Family Medicine
DX: M50.10 Cervical disc disorder with radiculopathy, unspecified cervical region (principal); G89.29 Other chronic pain; G43.909 Migraine, unspecified, not intractable, without status migrainosus; Z79.899 Other long term (current) drug therapy

== ENCOUNTER → 2021-05-07 | Outpatient (CLI) | payer OTHER | LOC: M LABSMTC 11:22 | PROVIDERS: ATTEND Anesthesiology | DX: Z20.822 Contact with and (suspected) exposure to COVID-19 (principal) ==

== ENCOUNTER → 2021-05-12 | Outpatient (CLI) | payer OTHER ==
[~2021-05-12] MED LIST changes: +ISOVUE-M 300 61% 15ML VIAL As Ordered ONE; +LIDOCAINE 1% SDV 30ML VIAL As Ordered ONE; +NORCO, ANEXSIA 5/325MG TABLET (HYDROcodone/ACETAMINOPHEN) As Ordered ONE; +diazePAM 5MG TABLET As Ordered ONE; +methylPREDNISolone SUSP 40MG/ML 1ML VIAL (DEPO MEDROL) As Ordered ONE
--- NOTE | 2021-05-12 14:19 | REP ---
INDICATION: CERVICAL EPIDURAL STEROID INJECTON. COMPARISON: None. TECHNIQUE: Three views. 17.6 seconds of fluoroscopy time is reported. FINDINGS: Is a sequence of 3 last image hold fluoroscopically obtained spot radiograph(s) of the cervical spine document(s) needle position(s) and contrast injection associated with injection procedure. IMPRESSION: Procedural imaging. <Electronically signed by Rayshawn Waller > 05/12/21 [id number]
--- NOTE | 2021-05-15 01:55 | ECWPNPC ---
PATIENT NAME: EAGLE CABRERA : 1980 GENDER: MALE VISIT DATE: 05/12/2021 DISCHARGE DATE: 05/12/21 1355 VISIT LOCKED DATE TIME: PHYSICIAN: ALEXANDER JOSHI MD PHYSICIAN PAGER NO: ACTIVE RESOURCE: ALEXANDER JOSHI MD REASON FOR APPOINTMENT 1. CERVICAL EPIDURAL STEROID INJECTION HISTORY OF PRESENT ILLNESS GENERAL: -. FALL RISK SCREENING: SCREENING : NO FALLS REPORTED IN THE LAST YEAR. PAIN SCREENING: PATIENT HAS A COMPLAINT OF ACUTE OR CHRONIC PAIN :YES LOCATION OF PAIN:NECK, BOTH SHOULDERS INTENSITY OF PAIN (SCALE OF 1 TO 10):4 WHAT DOES YOUR PAIN FEEL LIKE:SHARP, STABBING DURATION:CONTINOUS, CONSTANT PAIN IS INCREASED BY:ACTIVITIES PAIN IS DECREASED BY:USE OF PAIN MEDICATIONS PAIN HAS INTERFERED WITH THE FOLLOWING: EVERYTHING NURSING NOTE: -. PAIN CENTER INTAKE QUESTIONS: DO YOU HAVE A HISTORY OF MRSA? :NO DO YOU TAKE A BLOOD THINNERS? :NO DO YOU HAVE ANY BLEEDING DISORDERS? :NO ANY NEW NUMBNESS OR WEAKNESS IN YOUR LEGS OR ARMS? :NO ANY PACEMAKER,DEFIBRILLATOR, OR DORSAL COLUMN STIMULATOR? :NO DO YOU HAVE ANY RASHES OR OPEN SORES? :NO ARE YOU ALLERGIC TO IV DYE? :NO ARE YOU DIABETIC? :NO ANY NEW PROBLEMS WITH YOUR MEDICATIONS? :NO HAVE YOU RECEIVED A VACCINE IN THE PAST 30 DAYS? :NO DO YOU PLAN TO RECEIVE A VACCINE IN THE NEXT 21 DAYS? :NO DO YOU TAKE ANY IMMUNOSUPPRESSIVE MEDICATIONS? :NO ANY HISTORY OF SEIZURES? :NO ANY HISTORY OF CARDIAC ISSUES OR EVENTS? :NO DO YOU HAVE ANY KIDNEY OR LIVER DISEASE? :NO DO YOU HAVE SLEEP APNEA? :NO ANY RECENT HEAD INJURY? :NO DO YOU HAVE ANY NEW INFECTIONS? :NO IS THERE A CHANCE YOU COULD BE ? :NO ARE YOU BREAST FEEDING? :NO WHEN DID YOU LAST EAT? : 05/11 1930 WHEN DID YOU LAST DRINK? : 05/11 1930 WHAT DID YOU LAST DRINK? : POWER AID NAME OF PERSON DRIVING YOU HOME? : PABLO DO YOU HAVE ANY OTHER QUESTIONS OR CONCERNS? : - CURRENT MEDICATIONS TAKING IBUPROFEN 200 MG TABLET 3 TABLET WITH FOOD OR MILK NEEDED ORALLY PRN TAKING ACETAMINOPHEN EXTRA STRENGTH 500 MG TABLET 2 TABLET NEEDED ORALLY EVERY 6 HRS NEEDED FOR PAIN TAKING GABAPENTIN 300 MG CAPSULE 1 CAPSULE ORALLY THREE TIMES DAILY START DAY 6, NOTES: 7/26 0900 TAKING METHOCARBAMOL 750 MG TABLET 1 TABLET ORALLY EVERY 4 HRS PRN, NOTES: 05/11 900 NOT-TAKING GABAPENTIN 100 MG CAPSULE 1 CAPSULE ORALLY THREE TIMES DAILY X 5 DAYS MEDICATION LIST REVIEWED AND RECONCILED WITH THE PATIENT PAST MEDICAL HISTORY MIGRAINES DDD IMPINGEMENT OF SPINAL CORD C3 OSTEOARTHRITIS BONE SPURS IN SPINE TENDONOSIS SPINAL STENOSIS ALLERGIES N.K.D.A. SOCIAL HISTORY GENERAL: TOBACCO USE ARE YOU A:NEVER SMOKER LATEX QUESTIONNAIRE LATEX ALLERGY : HAVE YOU EVER DEVELOPED ANY TYPE OF REACTION AFTER HANDLING LATEX PRODUCTS SUCH RUBBER GLOVES, CONDOMS, DIAPHRAGMS, BALLOONS, SOCKS, OR UNDERWEAR?NO LATEX ALLERGY : HAVE YOU EVER DEVELOPED ANY TYPE OF REACTION DURING OR AFTER DENTAL APPOINTMENT, VAGINAL/RECTAL EXAMINATION, SURGICAL PROCEDURE, OR ANY OTHER EXPOSURE?NO DATE ASKED : 04/09/2021 LATEX RISK : HAVE YOU EVER HAD ANY DIFFICULTY BREATHING OR HIVES AFTER EATING OR HANDLING ANY FRUITS, OR VEGETABLES; SUCH KIWI, BANANAS, STONE FRUITS, OR CHESTNUTSNO LATEX RISK : DO YOU HAVE A PREVIOUS PERSONAL HISTORY OF MORE THAN NINE SURGERIES, SPINA BIFIDA, OR REPEATED CATHERIZATIONS? NO LATEX RISK : ARE YOU FREQUENTLY EXPOSED TO LATEX PRODUCTS IN YOUR OCCUPATION?NO ALCOHOL USE: OCCASIONAL BEER.. ALCOHOL SCREENING POINTS: 2, INTERPRETATION: NEGATIVE. RECREATIONAL DRUG USE DENIES. CAFFEINE NONE. SEXUAL HX HAD SEX IN THE LAST 12 MONTHS (VAGINAL, ORAL, OR ANAL)?: YES, WITH: WOMEN ONLY, USE PROTECTION?: NO, PREVENTION STRATEGIES DISCUSSED:: OTHER, HAVE YOU EVER HAD AN STD?: NO. WORSHIP NO DENOMINATIONAL BELIEFS THAT WOULD IMPACT HEALTH CARE. LANGUAGE TAJIK. EDUCATION LEVEL OF EDUCATION:NOT FINISHED COLLEGE LEARNING BARRIERS / SPECIAL NEEDS CHANGE FROM LAST VISIT?NO BARRIERS TO LEARNING?NO HEARING IMPAIRED?NO VISION IMPAIRED?YES COGNITIVELY IMPAIRED?NO :CORRECTIVE LENSES READINESS TO LEARN?YES LEARNING PREFERENCES?NO LEARNING CAPABILITIES PRESENT?YES EMOTIONAL BARRIERS?NO SPECIAL DEVICES?NO SCHOOL LUNCH MANAGER NEEDED?NO DOMESTIC VIOLENCE DO YOU FEEL SAFE IN YOUR ENVIRONMENT?YES OCCUPATION: SALES. DIET: REGULAR. EXERCISE: WALKS. MARITAL STATUS: . OTHERS AT HOME: SPOUSE, CHILD. - HAS THE PATIENT BEEN EDUCATED REGARDING HIS/HER PLAN OF CARE?YES HAS THE PATIENT BEEN EDUCATED REGARDING PAIN, THE RISK FOR PAIN, THE IMPORTANCE OF EFFECTIVE PAIN MANAGEMENT, AND THE PAIN ASSESSMENT PROCESS?YES ADVANCE DIRECTIVE ADVANCE DIRECTIVE DISCUSSED WITH PATIENT:YES PT DECLINES INFORMATION ON HCP AT THIS TIME VITAL SIGNS WT 162.8 LBS, HT 5'11", BMI 22.70 INDEX, BP 128/60 MM HG, HR 74 /MIN, RR 18 /MIN, TEMP 98.1 F, OXYGEN SAT % 95%, SAFE IN ENV? (Y/N) Y, NA INITIALS AW 1100, REVIEWED BY: Federico ORDONEZ RN. EXAMINATION GENERAL: THE PATIENT IS ALERT, ORIENTED TIMES THREE AND COOPERATIVE. LUNGS ARE CLEAR TO AUSCULTATION. HEART SHOWS REGULAR RHYTHM, NO MURMURS AND NO GALLOPS. ASSESSMENTS CERVICAL DISC DISORDER WITH RADICULOPATHY - M50.10 (PRIMARY) TREATMENT CERVICAL DISC DISORDER WITH RADICULOPATHY [facility] FLUORO GUIDE SPINE INJECTION (PAIN)[id number] COMPLETION OF PROCEDURAL VISIT WHEN MEETS CRITERIA MEDICATION: NORCO TABLET 5MG/325MG ORALLY (HYDROCODONE/ACETAMINOPHEN)BRANDON COOK 05/12/2021 11:20:20 AM > VERIFIED. JONG ORDONEZ 05/12/2021 11:33:46 AM > ADMINISTERED MEDICATION: PAIN VALIUM TAB 5MG ORALLY (DIAZEPAM)BRANDON COOK 05/12/2021 11:20:35 AM > VERIFIED. JONG ORDONEZ 05/12/2021 11:34:10 AM > ADMINISTERED SALINE LOCKDEJONG GOODMAN 05/12/2021 12:14:37 PM > @ 1145 SL STARTED ON1ST ATTEMPT WITH #22G, CATHETER FLUSHED EASILY WITHOUT SWELLING OR RESISTANCE. PT TOLERATED WELL. OTHERS NOTES: CAROLANN HOLGUIN 05/07/21 EM. PROCEDURES PAIN NURSING RECORD PROCEDURE IN ROOM 1227, PHYSICIAN IN ROOM 1250, START 1255, FINISH 1259, PHYSICIAN OUT OF ROOM 1306, OUT OF ROOM 1311, ECG NORMAL SINUS, PATIENT SHIELDED YES, SAFETY STRAP YES, PREP BETADINE Federico ORDONEZ RN, DRESSING TEGADERM DR. JOSHI LOC: JONG ORDONEZ 05/12/2021 12:30:56 PM > 1. ALERT, ORIENTED RESP: JONG ORDONEZ 05/12/2021 12:31:01 PM > 1. REGULAR, NO DYSPNEA COLOR: JONG ORDONEZ 05/12/2021 12:31:06 PM > 1. PINK SKIN: JONG ORDONEZ 05/12/2021 12:31:11 PM > 1. WARM, DRY POSITION: JONG ORDONEZ 05/12/2021 12:31:17 PM > 1. PRONE VITALS: JONG ORDONEZ 05/12/2021 11:50:18 AM > 101/61,73,16,98% 1203 P77 R18 02 98% BP 124/74 AW JONG ORDONEZ 05/12/2021 12:31:22 PM > 113/68,84,16,99% NADIR ORDONEZITA 05/12/2021 12:40:42 PM > 109/70,77,16,99% NADIR ORDONEZITA 05/12/2021 12:55:40 PM > 115/74,70,16,99% NADIR ORDONEZITA 05/12/2021 1:09:05 PM > 106/68,67,16,99% NADIR ORDONEZITA 05/12/2021 1:30:56 PM > 112/76,79,16,99% NOTES JONG ORDONEZ 05/12/2021 1:32:53 PM > AT 1320 PT C/O SEVERE PAIN IN ARMS. DR. JOSHI AWARE AND INTO SEE PT. HE EXPLAINED TO PAT. REGARDING THE VOLUME OF FLUID HE PLACED IN TO THE SPACE CAUSING PRESSURE TO THE AREA AND THE PAIN IN HIS ARMS. PT. VERBALIZED UNDERSTANDING. COMPLETION OF PROCEDURE APPOINTMENT: POST PAIN 4, DRESSING SITE DRY AND INTACT, IV DISCONTINUED, CATHETER INTACT SITE SLIGHTLY ECCHYMOTIC., GAIT STEADY, TEACHING COMPLETED, PATIENT ACKNOWLEDGES UNDERSTANDING YES, PROCEDURE APPOINTMENT COMPLETED AT 1334 BY: Federico ORDONEZ RN PN CERVICAL EPIDURAL PRE PROCEDURE DIAGNOSIS CERVICAL DISC DISORDER WITH RADICULOPATHY POST PROCEDURE DIAGNOSIS CERVICAL DISC DISORDER WITH RADICULOPATHY PROCEDURE CERVICAL EPIDURAL STEROID INJECTION UNDER FLUOROSCOPIC GUIDANCE SURGEON DR. ALEXANDER JOSHI DOCUMENT IMPROVEMENT SPECIALIST NONE ANESTHESIA LOCAL PRE PROCEDURE NOTE THE PATIENT HAS A HISTORY OF CHRONIC CERVICAL PAIN. I EVALUATED THE PATIENT AND REVIEWED THE CHART. I WENT OVER THE RISKS, ALTERNATIVES, AND BENEFITS ASSOCIATED WITH THIS PROCEDURE. THE PATIENT WOULD LIKE TO PROCEED AND GIVE CONSENT TO PERFORMED THE PROCEDURE. THE PATIENT DENIES UNEXPLAINABLE WEIGHT LOSS, FEVER, CHILLS, OR NEW CHANGES IN URINARY OR BOWEL CONTROL. THE PATIENT IS COVID-19 NEGATIVE DESCRIPTION OF PROCEDURE THE PATIENT WAS BROUGHT TO THE PROCEDURE ROOM AND PLACED IN THE PRONE POSITION. THE CERVICOTHORACIC AREA WAS CLEANED WITH BETADINE SOLUTION AND DRAPED ASEPTICALLY. THE PROCEDURE WAS DONE UNDER STERILE CONDITIONS. A TIMEOUT WAS PERFORMED WHERE THE CONSENTED SITE WAS VERIFIED WITH EVERYONE IN THE ROOM. UNDER FLUOROSCOPIC GUIDANCE, THE TARGET WAS SELECTED AT THE INTERLAMINAR LEVEL OF C7-T1. I CONFIRMED AGAIN THE SITE OF TARGET. LIDOCAINE WAS USED TO NUMB THE SKIN AND THE SUBCUTANEOUS TISSUE BELOW IT. EPIDURAL TUOHY NEEDLE, 17-GAUGE, WAS ADVANCED UNDER FLUOROSCOPIC GUIDANCE AND FOLLOWING PATIENT FEEDBACK UNTIL THE EPIDURAL SPACE WAS REACHED 5 CM DEEP INTO THE SKIN BY THE LOSS OF RESISTANCE TECHNIQUE. ISOVUE-M DYE 30%, 0.25 ML, WAS INJECTED SHOWING ADEQUATE SPREAD OF THE DYE. THEN, A SOLUTION OF 3 ML OF NORMAL SALINE WITH DEPO-MEDROL 40MG WAS INJECTED SLOWLY FOLLOWING PATIENT FEEDBACK. THE MEDICATIONS WERE VERIFIED WITH THE NURSE. THERE WAS NO EVIDENCE OF BLOOD, PARESTHESIA OR CEREBROSPINAL FLUID DURING THE PROCEDURE. ESTIMATED BLOOD LOSS WAS LESS THAN 5 ML. THE PATIENT WAS SENT TO THE RECOVERY ROOM. THE PATIENT WAS MOVING THE EXTREMITIES AND DOING WELL. THERE WERE NO COMPLICATIONS DURING THE PROCEDURE. FLUOROSCOPY TIME WAS 17 SECONDS POST PROCEDURE NOTE THE PATIENT WILL BE EVALUATED BY A SPINE SURGEON. THE PATIENT WILL BE SEEN IN A FOLLOW UP IN THE NEXT FEW WEEKS. I AM LOOKING FOR LONG LASTING RELIEF FOR THE PATIENT WITH THIS INTERVENTION. INSTRUCTIONS WERE GIVEN, QUESTIONS WERE ANSWERED, AND THE PATIENT EXPRESSED UNDERSTANDING AND AGREES WITH THE PLAN. I, DAPHNIE VYAS, DOCUMENTED THE ABOVE INFORMATION ACTING A SCRIBE FOR DR. JOSHI. I HAVE REVIEWED THE ABOVE DOCUMENT, WRITTEN BY DAPHNIE VYAS, MONORAIL CHARGER OPERATOR, AND I VERIFY THAT IT IS ACCURATE PROCEDURE CODES 37153 CERVICAL/THORACIC W/ IMAGING DISPOSITION & COMMUNICATION FOLLOW UP FOLLOW UP WITH WOOD BLOCK ARTIST (REASON: POST CERVICAL EPIDURAL STEROID INJECTION) ELECTRONICALLY SIGNED BY ALEXANDER JOSHI MD, MD ON 05/14/2021 AT 10:33 AM EDT DISCLAIMER : THIS IS A VISIT SUMMARY EXTRACTED FROM THE [employer] CHART. IT IS NOT A COPY OF THE [employer] PROGRESS NOTE. ANDREINAD
== END ==
LOC: M PAIN 10:20
PROVIDERS: ATTEND Anesthesiology
DX: M50.10 Cervical disc disorder with radiculopathy, unspecified cervical region (principal); G43.909 Migraine, unspecified, not intractable, without status migrainosus; Z79.899 Other long term (current) drug therapy
CPT/HCPCS: 62321; J1030; Q9967

== ENCOUNTER → 2021-05-28 | Outpatient (CLI) | payer OTHER ==
[~2021-05-28] MED LIST changes: -ISOVUE-M 300 61% 15ML VIAL As Ordered ONE; -LIDOCAINE 1% SDV 30ML VIAL As Ordered ONE; -NORCO, ANEXSIA 5/325MG TABLET (HYDROcodone/ACETAMINOPHEN) As Ordered ONE; -diazePAM 5MG TABLET As Ordered ONE; -methylPREDNISolone SUSP 40MG/ML 1ML VIAL (DEPO MEDROL) As Ordered ONE
== END ==
LOC: M PAIN 11:15
PROVIDERS: ATTEND Anesthesiology
DX: Z53.21 Procedure and treatment not carried out due to patient leaving prior to being seen by health care provider (principal)

== ENCOUNTER → 2021-12-09 | Outpatient (CLI) | payer OTHER | LOC: M ADAMS 15:20 | PROVIDERS: ATTEND Physician Assistant | DX: M51.37 Other intervertebral disc degeneration, lumbosacral region (principal) ==

== ENCOUNTER → 2021-12-09 | Outpatient (REF) | payer OTHER ==
[2021-12-09 16:34] LABS: HEMATOCRIT 37.9 % (42.0-52.0); HEMOGLOBIN 13.2 g/dl (13.5-17.5); MEAN CORPUSCULAR HEMOGLOBIN 30.4 pg (27.0-33.0); MEAN CORPUSCULAR HGB CONC 34.8 g/dl (32.0-36.5); MEAN CORPUSCULAR VOLUME 87.3 fl (80.0-96.0); PLATELET COUNT, AUTOMATED 262 10^3/uL (150-450); RED BLOOD COUNT 4.34 10^6/uL (4.30-6.10); WHITE BLOOD COUNT 4.8 10^3/uL (4.0-10.0)
[2021-12-09 17:01] LABS: ALT/SGPT 36 U/L (12-78); BILIRUBIN,TOTAL 0.6 MG/DL (0.2-1.0); BLOOD UREA NITROGEN 12 MG/DL (7-18); CARBON DIOXIDE LEVEL 33 MEQ/L (21-32); CHLORIDE LEVEL 108 MEQ/L (98-107); CREATININE FOR GFR 0.82 MG/DL (0.70-1.30); FREE T4 0.95 NG/DL (0.76-1.46); GLOMERULAR FILTRATION RATE > 60.0 (>60); GLUCOSE, FASTING 118 MG/DL (70-100); POTASSIUM SERUM 4.1 MEQ/L (3.5-5.1); RHEUMATOID FACTOR QUANT 66.5 IU/ML (<15.0); SODIUM LEVEL 142 MEQ/L (136-145); THYROID STIMULATING HORMONE 0.906 uIU/ML (0.358-3.740); TOTAL PROTEIN 7.4 GM/DL (6.4-8.2)
[2021-12-09 17:02] LABS: FOLATE 11.9 NG/ML; TOTAL 25(OH) VITAMIN D 13.9 NG/ML (30.0-100.0); VITAMIN B12 LEVEL 241 PG/ML
[2021-12-09 17:15] LABS: ERYTHROCYTE SEDIMENTATION RATE 6 mm/hr (0-15)
== END ==
LOC: M SFHCADAM 15:19
PROVIDERS: ATTEND Physician Assistant
DX: M54.50 Low back pain, unspecified (principal); G89.29 Other chronic pain; M13.0 Polyarthritis, unspecified

== ENCOUNTER → 2022-03-13 | Outpatient (CLI) | payer OTHER | LOC: M RAD 08:12 | PROVIDERS: ATTEND Student in an Organized Health Care Education/Training Program | DX: M47.816 Spondylosis without myelopathy or radiculopathy, lumbar region (principal) ==

== ENCOUNTER → 2022-07-15 | Outpatient (CLI) | payer OTHER | LOC: M PLARAD 12:59 | PROVIDERS: ATTEND Family Medicine | DX: M51.26 Other intervertebral disc displacement, lumbar region (principal); M50.10 Cervical disc disorder with radiculopathy, unspecified cervical region ==

== ENCOUNTER → 2022-07-21 | Outpatient (REF) | payer OTHER ==
[2022-07-21 15:17] LABS: ALBUMIN 4.5 GM/DL (3.2-5.2); ALT/SGPT 20 U/L (12-78); BILIRUBIN,DIRECT 0.2 MG/DL (0.0-0.2); BILIRUBIN,TOTAL 0.9 MG/DL (0.2-1.0); C REACTIVE PROTEIN QUANTITATIV < 0.30 MG/DL (0.00-0.30); RHEUMATOID FACTOR QUANT < 10.0 IU/ML (<15.0); TOTAL PROTEIN 8.2 GM/DL (6.4-8.2)
[2022-07-21 16:58] LABS: HEPATITIS B SURFACE ANTIBODY NEGATIVE (POSITIVE)
[2022-07-21 17:09] LABS: HEPATITIS B SURFACE ANTIGEN NEGATIVE (NEGATIVE)
[2022-07-21 17:37] LABS: HEPATITIS C VIRUS ABY INDEX < 0.0 INDEX (<0.8)
== END ==
LOC: M SFHCRHEU 10:35
PROVIDERS: ATTEND Internal Medicine
DX: M54.9 Dorsalgia, unspecified (principal); R76.8 Other specified abnormal immunological findings in serum; R74.01 Elevation of levels of liver transaminase levels

== ENCOUNTER → 2022-12-29 | Outpatient (REF) | payer OTHER | LOC: M SFHCADAM 09:09 | PROVIDERS: ATTEND Physician Assistant | DX: R73.09 Other abnormal glucose (principal); R00.2 Palpitations; E78.5 Hyperlipidemia, unspecified ==

== ENCOUNTER → 2023-01-10 | Outpatient (CLI) | payer OTHER | LOC: M SOG 08:10 | PROVIDERS: ATTEND Orthopaedic Surgery | DX: M25.511 Pain in right shoulder (principal); M75.41 Impingement syndrome of right shoulder; R20.2 Paresthesia of skin ==

== ENCOUNTER → 2024-01-17 | Outpatient (REF) | payer OTHER ==
[2024-01-17 14:30] LABS: C REACTIVE PROTEIN QUANTITATIV < 0.40 MG/DL (<1.0)
[2024-01-17 14:32] LABS: FREE T4 1.13 NG/DL (0.89-1.76); THYROID STIMULATING HORMONE 1.475 uIU/ML (0.55-4.78)
[2024-01-17 14:33] LABS: ALBUMIN 4.3 G/DL (3.2-5.2); ALKALINE PHOSPHATASE 70 U/L (46-116); ALT/SGPT 11 U/L (7.0-40); AST/SGOT < 8 U/L (<34); BILIRUBIN,TOTAL 0.6 MG/DL (0.3-1.2); BLOOD UREA NITROGEN 19 MG/DL (9-23); CALCIUM LEVEL 9.5 MG/DL (8.5-10.1); CARBON DIOXIDE LEVEL 34 MMOL/L (20-31); CHLORIDE LEVEL 108 MMOL/L (98-107); CREATININE FOR GFR 0.81 MG/DL (0.70-1.30); FOLATE 11.8 NG/ML (>5.4); GLOMERULAR FILTRATION RATE > 60.0 (>60); GLUCOSE, FASTING 99 MG/DL (60-100); POTASSIUM SERUM 5.3 MMOL/L (3.5-5.1); SODIUM LEVEL 143 MMOL/L (136-145); TOTAL PROTEIN 7.3 G/DL (5.7-8.2); VITAMIN B12 LEVEL 280 PG/ML (211-911)
[2024-01-17 14:34] LABS: RHEUMATOID FACTOR QUANT < 3.5 IU/ML (<14); TOTAL 25(OH) VITAMIN D 20.7 NG/ML (20.0-100.0)
[2024-01-17 14:37] LABS: BASO # 0.1 10^3/uL (0.0-0.2); EOS # 0.2 10^3/uL (0.0-0.5); EOS % 3.3 % (0.0-3.0); HEMATOCRIT 44.5 % (42.0-52.0); HEMOGLOBIN 15.1 g/dl (13.5-17.5); LYMPH # 1.6 10^3/uL (1.5-5.0); LYMPH % 30.6 % (24.0-44.0); MEAN CORPUSCULAR HEMOGLOBIN 30.5 pg (27.0-33.0); MEAN CORPUSCULAR HGB CONC 33.9 g/dl (32.0-36.5); MEAN CORPUSCULAR VOLUME 89.9 fl (80.0-96.0); MONO # 0.6 10^3/uL (0.0-0.8); NEUTROPHILS # 2.8 10^3/uL (1.5-8.5); NEUTROPHILS % 53.9 % (36.0-66.0); PLATELET COUNT, AUTOMATED 268 10^3/uL (150-450); RED BLOOD COUNT 4.95 10^6/uL (4.30-6.10); WHITE BLOOD COUNT 5.2 10^3/uL (4.0-10.0)
== END ==
LOC: M SFHCADAM 09:39
PROVIDERS: ATTEND Physician Assistant
DX: M50.30 Other cervical disc degeneration, unspecified cervical region (principal); M67.813 Other specified disorders of tendon, right shoulder; R00.2 Palpitations; R63.4 Abnormal weight loss; F33.1 Major depressive disorder, recurrent, moderate; Z13.220 Encounter for screening for lipoid disorders; E55.9 Vitamin D deficiency, unspecified

== ENCOUNTER → 2024-02-02 | Outpatient (REF) | payer OTHER ==
[2024-02-02 13:07] LABS: BLOOD UREA NITROGEN 14 MG/DL (9-23); CALCIUM LEVEL 8.7 MG/DL (8.5-10.1); CARBON DIOXIDE LEVEL 34 MMOL/L (20-31); CHLORIDE LEVEL 108 MMOL/L (98-107); CREATININE FOR GFR 0.85 MG/DL (0.70-1.30); GLOMERULAR FILTRATION RATE > 60.0 (>60); GLUCOSE, FASTING 92 MG/DL (60-100); POTASSIUM SERUM 4.9 MMOL/L (3.5-5.1); SODIUM LEVEL 144 MMOL/L (136-145)
== END ==
LOC: M SFHCADAM 08:32
PROVIDERS: ATTEND Physician Assistant
DX: E87.5 Hyperkalemia (principal)

== ENCOUNTER → 2024-07-05 | Outpatient (REF) | payer OTHER ==
[2024-07-05 14:15] LABS: C REACTIVE PROTEIN QUANTITATIV < 0.40 MG/DL (<1.0)
[2024-07-05 14:16] LABS: BASO # 0.1 10^3/uL (0.0-0.2); BASO % 0.8 % (0.0-1.0); EOS # 0.1 10^3/uL (0.0-0.5); EOS % 2.3 % (0.0-3.0); HEMATOCRIT 45.2 % (42.0-52.0); HEMOGLOBIN 15.6 g/dl (13.5-17.5); LYMPH # 1.5 10^3/uL (1.5-5.0); LYMPH % 24.5 % (24.0-44.0); MEAN CORPUSCULAR HGB CONC 34.5 g/dl (32.0-36.5); MEAN CORPUSCULAR VOLUME 89.7 fl (80.0-96.0); MONO # 0.6 10^3/uL (0.0-0.8); MONO % 9.6 % (2.0-8.0); NEUTROPHILS # 3.8 10^3/uL (1.5-8.5); NEUTROPHILS % 62.5 % (36.0-66.0); PLATELET COUNT, AUTOMATED 284 10^3/uL (150-450); RED BLOOD COUNT 5.04 10^6/uL (4.30-6.10); WHITE BLOOD COUNT 6.1 10^3/uL (4.0-10.0)
[2024-07-05 14:17] LABS: ALBUMIN 4.5 G/DL (3.2-5.2); ALKALINE PHOSPHATASE 85 U/L (46-116); ALT/SGPT 16 U/L (7.0-40); AST/SGOT < 8 U/L (<34); BLOOD UREA NITROGEN 19 MG/DL (9-23); CALCIUM LEVEL 9.7 MG/DL (8.5-10.1); CARBON DIOXIDE LEVEL 31 MMOL/L (20-31); CHLORIDE LEVEL 106 MMOL/L (98-107); CREATININE FOR GFR 0.81 MG/DL (0.70-1.30); GLOMERULAR FILTRATION RATE > 60.0 (>60); GLUCOSE, FASTING 95 MG/DL (60-100); SODIUM LEVEL 139 MMOL/L (136-145); TOTAL PROTEIN 8.1 G/DL (5.7-8.2)
[2024-07-05 14:20] LABS: FREE T4 1.31 NG/DL (0.89-1.76); THYROID STIMULATING HORMONE 1.515 uIU/ML (0.55-4.78)
[2024-07-05 14:21] LABS: FOLATE 15.6 NG/ML (>5.4); TOTAL 25(OH) VITAMIN D 20.9 NG/ML (20.0-100.0)
[2024-07-05 14:22] LABS: VITAMIN B12 LEVEL 305 PG/ML (211-911)
[2024-07-05 14:30] LABS: ERYTHROCYTE SEDIMENTATION RATE 9 mm/hr (0-15)
[2024-07-05 15:12] LABS: HEMOGLOBIN A1c 4.8 % (4.0-6.0)
== END ==
LOC: M SFHCADAM 09:33
PROVIDERS: ATTEND Physician Assistant
DX: F41.1 Generalized anxiety disorder (principal); F41.0 Panic disorder [episodic paroxysmal anxiety]; R00.0 Tachycardia, unspecified; M25.512 Pain in left shoulder

== ENCOUNTER → 2024-07-26 | Outpatient (CLI) | payer OTHER | LOC: M RAD 16:59 | PROVIDERS: ATTEND Physician Assistant | DX: S69.92XA Unspecified injury of left wrist, hand and finger(s), initial encounter (principal); X58.XXXA Exposure to other specified factors, initial encounter; Y92.9 Unspecified place or not applicable ==

== ENCOUNTER → 2025-02-27 | Outpatient (CLI) | payer OTHER | LOC: M ADAMS 13:44 | PROVIDERS: ATTEND Family Medicine | DX: R68.84 Jaw pain (principal) ==

== ENCOUNTER → 2025-07-10 | Outpatient (REF) | payer OTHER ==
[~2025-07-10] MED LIST changes: -IBUP-1022 PO; +IBUP600T42 PO
[2025-07-10 17:15] LABS: APPEARANCE, URINE CLEAR (CLEAR); BACTERIA, URINE AUTO NEGATIVE (NEGATIVE); BILIRUBIN, URINE AUTO NEGATIVE (NEGATIVE); BLOOD, URINE BLOOD NEGATIVE (NEGATIVE); GLUCOSE, URINE (UA) AUTO NEGATIVE (NEGATIVE); KETONE, URINE AUTO NEGATIVE (NEGATIVE); LEUKOCYTE ESTERASE, URINE AUTO NEGATIVE (NEGATIVE); NITRITE, URINE AUTO NEGATIVE (NEGATIVE); PROTEIN, URINE AUTO NEGATIVE (NEGATIVE); RBC, URINE AUTO 1 /HPF (0-3); SPECIFIC GRAVITY URINE AUTO 1.010 (1.002-1.035); SQUAMOUS EPITHELIAL CELL UR AU 0 /HPF (0-6); UROBILINOGEN, URINE AUTO 0.2 mg/dL (0.0-2.0); WBC, URINE AUTO 0 /HPF (0-3)
== END ==
LOC: M SFHCADAM 16:43
PROVIDERS: ATTEND Physician Assistant
DX: Z00.00 Encounter for general adult medical examination without abnormal findings (principal); F41.1 Generalized anxiety disorder; M50.10 Cervical disc disorder with radiculopathy, unspecified cervical region; M70.62 Trochanteric bursitis, left hip; Z13.220 Encounter for screening for lipoid disorders; Z13.1 Encounter for screening for diabetes mellitus

== ENCOUNTER → 2025-07-11 | Outpatient (CLI) | payer OTHER | LOC: M RAD 14:58 | PROVIDERS: ATTEND Physician Assistant | DX: R39.11 Hesitancy of micturition (principal); F52.32 Male orgasmic disorder; M45.9 Ankylosing spondylitis of unspecified sites in spine; D17.30 Benign lipomatous neoplasm of skin and subcutaneous tissue of unspecified sites; M51.26 Other intervertebral disc displacement, lumbar region; M47.816 Spondylosis without myelopathy or radiculopathy, lumbar region ==

== ENCOUNTER → 2025-07-30 | Outpatient (REF) | payer OTHER | LOC: M LAB REF 15:22 | PROVIDERS: ATTEND Surgery | DX: D17.30 Benign lipomatous neoplasm of skin and subcutaneous tissue of unspecified sites (principal) ==